=== PATIENT | male | born 1985 | race African-American/Black ===

== ENCOUNTER 2023-11-02 11:20 | Inpatient (IN) | payer MEDICAID, SELFPAY ==
[2023-11-02] VITALS (11 sets, daily range): BP systolic 117–159; BP diastolic 84–95; PULSE 80–116; RESP 16–40; TEMP 36.9–37.2; O2SAT 83–94; BMI 26.3
--- NOTE | 2023-11-02 11:31 | XRR_ITS ---
PROCEDURE INFORMATION: Exam: XR Chest Exam date and time: 11/02/2023 11:43 AM Age: 38 years old Clinical indication: Cough; Patient HX: PT has down syndrome and is unable to give proper history; Additional info: Hypoxia; Chest congestion; Cough. TECHNIQUE: Imaging protocol: Radiologic exam of the chest. Views: 1 view. COMPARISON: No relevant prior studies available. FINDINGS: Lungs: Airspace opacities in mid and lower lungs bilaterally. Pleural spaces: Small pleural effusions. No pneumothorax. Heart/Mediastinum: Cardiomegaly/prominent cardiopericardial silhouette. Bones/joints: Minimal scoliotic curvature and spondylotic changes of the thoracolumbar spine. XR/XR chest 1V portable [id number] IMPRESSION: Airspace opacities in mid and lower lungs. Cardiomegaly. Congestive heart failure and or infection. Correlate clinically and follow-up.
--- NOTE | 2023-11-02 11:32 | W.ED.GENADLT ---
HPI - General Adult General: Chief complaint: General Medical Stated complaint: LOW O2 Time Seen by Provider: 11/02/23 11:26 History of Present Illness: 38-year-old male with a history of Down syndrome who presents from the senior living facility. Their SpO2 was reading slightly low this morning and they wanted a medical screening examination performed. The patient is nonverbal at baseline. EMS gives report that he is prescribed 2 L of oxygen to use by nasal cannula as needed. They report an oral temperature of 98.1. No respiratory distress during transport. SpO2 for them between 90 and 95%. They report the patient does seem to have breath-holding. They report he did have a minor fall yesterday with loose tooth and bruise at bridge of nose. He has been calm and cooperative throughout transport. He is wearing 2 L of oxygen by nasal cannula on arrival. Related Data Allergies Allergy/AdvReac Type Severity Reaction Status Date / Time No Known Allergies Allergy Verified 11/02/23 16:30 Review of Systems General: Reports: ROS unobtainable due to mental status (Down syndrome, nonverbal) Physical Exam Narrative: EXAM NARRATIVE: Patient appears stated age. No distress. Wearing 2 L of oxygen by nasal cannula. Patient has misaligned eyes with strabismus and nystagmus even at his baseline gaze. He has some craniofacial deformities. He has nonverbal. He shakes his head up and down occasionally when you talk to him. He does not appear to be in any distress. I have witnessed him doing breath-holding myself several times during the exam and history from EMS. He does have some nasal congestion/ rhonchi and sounds like he needs to clear his throat. No injuries on trauma exam noted. Const: COMMON NORMALS: alert; negative for patient oriented x3 HENMT: COMMON NORMALS: atraumatic HEAD & SCALP: atraumatic MOUTH: no muffled voice OTHER: nasal congestion, ? bruise at bridge of nose Eye: COMMON NORMALS: conjunctivae normal and no scleral icterus CONJUNCTIVA: Yes conjunctivae normal Neck/C-Spine: GENERAL: Yes normal visual inspection, Yes trachea midline, No tracheostomy present, No Meningeal signs present and Yes other (c spine NT) Resp: COMMON NORMALS: normal respiratory effort and No use of accessory muscles Cardio: COMMON NORMALS: regular rate and regular rhythm RATE: regular rate RHYTHM: regular rhythm GI: COMMON NORMALS: Soft to palpation and non-tender PALPATION: Yes Soft to palpation and No Guarding due to palpation present (GI) Extremity: COMMON NORMALS: normal to inspection Neuro: COMMON NORMALS: moves all extremities and no focal motor deficits; negative for patient oriented x3 SENSORIUM/ORIENTATION: Yes alert Skin: COMMON NORMALS: no rashes or lesions noted, turgor normal and no jaundice GENERAL SKIN EXAM: no rashes or lesions noted and turgor normal Course ED course: 1548 There is been a significant delay in the patient's workup and disposition. He has a lot of anxiety regarding hospitals and anything medical. Staff tried de-escalation and comforting. This did not work so we tried 2 mg of IM Ativan. We still were unable to get CT scans and IV and blood work. I called the patient's sister who is out of town with business right now. She has given me the go ahead to do a sedation so that we can get the testing done. I have ordered a ketamine sedation. Since his chest x-ray is abnormal and it was so difficult to get him the workup he needs, I am going to go ahead and do a CT of his head, face, cervical spine and CTA chest altogether. 1628 Patient has a segmental and subsegmental pulmonary embolism. There is dilatation of the right ventricle compared to the left ventricle. However, the patient's troponin is normal. EKG does not show any signs of strain but he is demonstrating tachycardia after the ketamine. He has T wave inversions in V1 and V2 which are unchanged from EKG 1 to EKG 2. I have paged the hospitalist for admission. Heparin bolus has been ordered. Vital Signs: Vital signs: Vital Signs Temperature 99.0 F 11/02/23 11:25 Pulse Rate 83 11/02/23 11:25 Respiratory Rate 16 11/02/23 11:25 Blood Pressure 117/85 11/02/23 11:25 Pulse Oximetry 88 L 11/02/23 11:25 Oxygen Delivery Me thod Nasal Cannula 11/02/23 11:25 Oxygen Flow Rate 2 11/02/23 11:25 MDM - General Adult Medical Decision Making Patient sent for medical screening. Without knowing the patient well, I will have to rely on history from the care home and EMS. He does not appear distressed, he has normal work of breathing. He does occasionally hold his breath. Unsure if this is contributing. He has some rhonchi which sound like they are being transmitted from his upper airways. + nasal congestion. Sounds like he needs to cough and clear his throat. His lower lungs sound normal on auscultation. Will go ahead and do a chest x-ray and EKG with covid swab. EMS reported a oral temperature of 98.1 and no other signs or symptoms that they or senior living facility were concerned about in regards to infection. He does not have JVD or peripheral edema. His abdomen is soft and nontender. He reportedly fell yesterday and hit the bridge of his nose and his front left central incisor. He has extruded teeth at baseline so his tooth would have been one of the first points of contact. His upper left central incisor is slightly loose. No apparent alveolar fractures. No facial instability. We will go ahead and do a CT scan of his head, face, neck due to the limitations in history and exam given the reported fall yesterday. Lab Data 11/02/23 15:52 11/02/23 15:52 Radiology Impressions Chest X-Ray 11/02/23 11:31 IMPRESSION: Airspace opacities in mid and lower lungs. Cardiomegaly. Congestive heart failure and or infection. Correlate clinically and follow-up. Chest CTA 11/02/23 15:10 IMPRESSION: 1. Pulmonary embolism with thrombus in the site mental and subsegmental pulmonary artery supplying the left lower lobe. 2. There is evidence of right heart strain with an RV to LV ratio measuring 1.2. ADDENDUM: 11/02/23 4421 THIS REPORT CONTAINS FINDINGS THAT MAY BE CRITICAL TO PATIENT CARE. The findings were verbally communicated via telephone conference with EDINSON Barahona at 4:20 PM CDT on 11/02/2023. The findings were acknowledged and understood. Laboratory Results WBC 9.04 10^3/uL (3.29-11.43) 11/02/23 15:52 RBC 5.26 10^6/uL (3.85-5.65) 11/02/23 15:52 Hgb 14.50 g/dL (11.27-16.99) 11/02/23 15:52 Hct 45.8 % (37-53) 11/02/23 15:52 MCV 87.1 fl (82-101) 11/02/23 15:52 MCH 27.6 pg (27-33) 11/02/23 15:52 MCHC 31.7 g/dL (30-55) 11/02/23 15:52 RDW 22.4 % (12.1-15.1) H 11/02/23 15:52 Plt Count 372 10^3/cmm (157-399) 11/02/23 15:52 MPV 8.7 fL (7.4-10.4) 11/02/23 15:52 Neut % (Auto) 59.4 % 11/02/23 15:52 Lymph % (Auto) 27.8 % 11/02/23 15:52 [place] % (Auto) 9.8 % 11/02/23 15:52 Eos % (Auto) 2.0 % 11/02/23 15:52 Baso % (Auto) 0.7 % 11/02/23 15:52 Neut # (Auto) 5.37 10^3/uL (1.8-7.7) 11/02/23 15:52 Lymph # (Auto) 2.5 10^3/uL (0.8-4.8) 11/02/23 15:52 [place] # (Auto) 0.9 10^3/uL (0.2-0.9) 11/02/23 15:52 Eos # (Auto) 0.2 10^3/uL (0.0-0.8) 11/02/23 15:52 Baso # (Auto) 0.1 10^3/uL (0.0-0.1) 11/02/23 15:52 Nucleated RBC % (auto) 0 % 11/02/23 15:52 Nucleated RBCs # 0.0 /100WBC 11/02/23 15:52 PT 14.70 SECONDS (12.1-14.9) 11/02/23 15:52 INR 1.11 (0.8-1.2) 11/02/23 15:52 Sodium 137 mmol/L (136-145) 11/02/23 15:52 Potassium 4.5 mmol/L (3.5-5.1) 11/02/23 15:52 Chloride 99 mmol/L (98-107) 11/02/23 15:52 Carbon Dioxide 29 mmol/L (22-29) 11/02/23 15:52 Anion Gap 13.5 (5-19) 11/02/23 15:52 BUN 14 mg/dL (6-20) 11/02/23 15:52 Creatinine 0.9 mg/dL (0.7-1.2) 11/02/23 15:52 GFR Calculation 113.7 mL/min (90-130) 11/02/23 15:52 Glucose 103 mg/dL (65-115) 11/02/23 15:52 Calculated Osmolality 285 mOsm/kg (285-295) 11/02/23 15:52 Calcium 8.5 mg/dL (8.5-10.5) 11/02/23 15:52 Total Bilirubin 0.3 mg/dL (0.15-1.2) 11/02/23 15:52 AST 18 U/L (0-40) 11/02/23 15:52 ALT 23 U/L (0-41) 11/02/23 15:52 Alkaline Phosphatase 71 U/L (40-130) 11/02/23 15:52 Troponin T Baseline 11 ng/L (0-15) 11/02/23 15:52 NT-Pro-B Natriuret Pep 502 pg/mL (0-125) H 11/02/23 15:52 Globulin 3.2 g/dL (1.3-4.6) 11/02/23 15:52 Procalcitonin 0.06 ng/mL (0-0.5) 11/02/23 15:52 XR interpretation done by ED provider, pending radiology final review Discharge Plan Discharge Patient Disposition: Admitted As Inpatient Clinical Impression: Down syndrome Pulmonary embolism Qualifiers: Pulmonary embolism type: unspecified Chronicity: unspecified Acute cor pulmonale presence: with acute cor pulmonale Qualified Code(s): I26.09 - Other pulmonary embolism with acute cor pulmonale Condition: Stable Coding Level of Care Code ED Hotel Breakfast Attendant for Eileen Bettencourt
--- NOTE | 2023-11-02 11:36 | ECG_ITS ---
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 Measurements Intervals [place] Rate: 74 P: 47 DC: 132 QRS: 38 QRSD: 105 T: 88 QT: 374 QTc: 417 Interpretive Statements SINUS RHYTHM WITH SINUS ARRHYTHMIA INDETERMINATE AXIS No previous ECG available for comparison Electronically Signed On 11-02-2023 20:07:52 CDT by Bryant Walsh M.D. [id number]
--- NOTE | 2023-11-02 11:40 | CTR_ITS ---
PROCEDURE INFORMATION: Exam: CT Maxillofacial Without Contrast Exam date and time: 11/02/2023 3:34 PM Age: 38 years old Clinical indication: Injury or trauma; Fall; Blunt trauma (contusions or hematomas); Orbit/periorbital and maxilla; Bilateral; Additional info: Fall, hit nose/teeth TECHNIQUE: Imaging protocol: Computed tomography of the face without contrast. Radiation optimization: All CT scans at this facility use at least one of these dose optimization techniques: automated exposure control; mA and/or kV adjustment per patient size (includes targeted exams where dose is matched to clinical indication); or iterative reconstruction. COMPARISON: CT head wo con* [id number] 11/02/2023 3:34 PM RADIATION DOSE METRICS: Total DLP (mGy-cm): 549.1 FINDINGS: Orbital cavities: Orbits are normal. Globes are unremarkable. Paranasal sinuses: Normal. No air-fluid levels. Bones: No acute fracture. Soft tissues: Unremarkable. CT/CT facial bones wo con* [id number] IMPRESSION: No acute findings.
--- NOTE | 2023-11-02 11:40 | CTR_ITS ---
PROCEDURE INFORMATION: Exam: CT Head Without Contrast Exam date and time: 11/02/2023 3:34 PM Age: 38 years old Clinical indication: Injury or trauma; Fall; Blunt trauma (contusions or hematomas); Consciousness not specified TECHNIQUE: Imaging protocol: Computed tomography of the head without contrast. Radiation optimization: All CT scans at this facility use at least one of these dose optimization techniques: automated exposure control; mA and/or kV adjustment per patient size (includes targeted exams where dose is matched to clinical indication); or iterative reconstruction. COMPARISON: CT facial bones wo con* [id number] 11/02/2023 3:34 PM RADIATION DOSE METRICS: Total DLP (mGy-cm): 1121.9 FINDINGS: Brain: Normal. No hemorrhage. Unremarkable white matter. No mass effect. Cerebral ventricles: Intact cavum septum pellucidum and et vergae. No ventriculomegaly. Paranasal sinuses: Visualized sinuses are unremarkable. No fluid levels. Mastoid air cells: Visualized mastoid air cells are well aerated. Bones: Unremarkable. No acute fracture. Soft tissues: Unremarkable. CT/CT head wo con* [id number] IMPRESSION: No acute intracranial abnormality.
--- NOTE | 2023-11-02 11:43 | CTR_ITS ---
PROCEDURE INFORMATION: Exam: CT Cervical Spine Without Contrast Exam date and time: 11/02/2023 3:34 PM Age: 38 years old Clinical indication: Injury or trauma; Fall; Blunt trauma; Patient HX: Down syndrome PT, unable to hold still for scan. ; Additional info: Trauma, down syndrome, limited HX TECHNIQUE: Imaging protocol: Computed tomography of the cervical spine without contrast. Radiation optimization: All CT scans at this facility use at least one of these dose optimization techniques: automated exposure control; mA and/or kV adjustment per patient size (includes targeted exams where dose is matched to clinical indication); or iterative reconstruction. COMPARISON: CT facial bones wo con* [id number] 11/02/2023 3:34 PM RADIATION DOSE METRICS: Total DLP (mGy-cm): 591.9 FINDINGS: Bones: No acute fracture. Normal alignment. No significant disc bulge or herniation. No severe spinal canal stenosis. No significant neural foraminal narrowing. Lungs: Lung apices are normal. Soft tissues: Unremarkable. CT/CT cervical spin wo con* [id number] IMPRESSION: No acute findings.
[2023-11-02] MEDS: LORazepam 2 mg/mL INJ 1 mL IM (13:46)
--- NOTE | 2023-11-02 15:10 | CTR_ITS ---
PROCEDURE INFORMATION: Exam: CTA Chest With Contrast Exam date and time: 11/02/2023 3:42 PM Age: 38 years old Clinical indication: Cough and dyspnea; Additional info: Cough, shortness of breath TECHNIQUE: Imaging protocol: Computed tomographic angiography of the chest with contrast. Exam focused on the arteries. 3D rendering (Not supervised by radiologist): MIP and/or 3D reconstructed images were created by the technologist. Radiation optimization: All CT scans at this facility use at least one of these dose optimization techniques: automated exposure control; mA and/or kV adjustment per patient size (includes targeted exams where dose is matched to clinical indication); or iterative reconstruction. Contrast material: OMNIPAQUE 350; Contrast volume: 80 ml; Contrast route: INTRAVENOUS (IV); COMPARISON: CR (CHEST, ) 11/02/2023 11:43 AM RADIATION DOSE METRICS: Total DLP (mGy-cm): 394.91 FINDINGS: Pulmonary arteries: Pulmonary embolism with thrombus in the site mental and subsegmental pulmonary artery supplying the left lower lobe. Aorta: Unremarkable. No aortic aneurysm. No aortic dissection. Lungs: Unremarkable. No consolidation. No masses. Pleural spaces: Unremarkable. No pneumothorax. No pleural effusion. Heart: There is evidence of right heart strain with an RV to LV ratio measuring 1.2. Lymph nodes: Unremarkable. No enlarged lymph nodes. Bones/joints: Unremarkable. No acute fracture. Soft tissues: Unremarkable. CT/CT angio chest PE protcl [id number] IMPRESSION: 1. Pulmonary embolism with thrombus in the site mental and subsegmental pulmonary artery supplying the left lower lobe. 2. There is evidence of right heart strain with an RV to LV ratio measuring 1.2.
--- NOTE | 2023-11-02 15:41 | ECG_ITS ---
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 Measurements Intervals [place] Rate: 103 P: 58 [place]: 141 QRS: 52 QRSD: 97 T: 74 QT: 338 QTc: 443 Interpretive Statements SINUS TACHYCARDIA Compared to ECG 11/02/2023 11:36:40 Sinus rhythm no longer present Sinus arrhythmia no longer present Indeterminate axis no longer present Electronically Signed On 11-02-2023 20:06:39 CDT by Bryant Walsh M.D. [id number]
[2023-11-02] MEDS: iohexol 350 mg/mL 500 mL Btl (per mL) IV (15:54)
[2023-11-02 15:57] LABS: Basophils # 0.1 10^3/uL (0.0-0.1); Basophils % 0.7 %; Eosinophils # 0.2 10^3/uL (0.0-0.8); Hematocrit 45.8 % (37-53); Lymphocytes # 2.5 10^3/uL (0.8-4.8); Lymphocytes % 27.8 %; Mean Corpuscular HGB Conc 31.7 g/dL (30-55); Mean Corpuscular Hemoglobin 27.6 pg (27-33); Mean Corpuscular Volume 87.1 fl (82-101); Mean Platelet Volume 8.7 fL (7.4-10.4); Monocytes # 0.9 10^3/uL (0.2-0.9); Monocytes % 9.8 %; Neutrophils # 5.37 10^3/uL (1.8-7.7); Neutrophils % 59.4 %; Nucleated Red Blood Cells % 0 %; Platelet Count 372 10^3/cmm (157-399); Red Blood Count 5.26 10^6/uL (3.85-5.65); Red Cell Distribution Width 22.4 % (12.1-15.1); White Blood Count 9.04 10^3/uL (3.29-11.43)
[2023-11-02] MEDS: ketamine 100 mg/mL Inj 5 mL 313.9 MG IM (16:07)
[2023-11-02 16:20] LABS: Troponin(5th) Baseline 11 ng/L (0-15)
[2023-11-02 16:25] LABS: NT Pro B Type Natriuretic Pept 502 pg/mL (0-125); Procalcitonin 0.06 ng/mL (0-0.5)
[2023-11-02 16:37] LABS: Alanine Aminotransferase 23 U/L (0-41); Albumin Level 3.3 g/dL (3.5-5.2); Alkaline Phosphatase 71 U/L (40-130); Anion Gap 13.5 (5-19); Aspartate Amino Transferase 18 U/L (0-40); Blood Urea Nitrogen 14 mg/dL (6-20); Calcium 8.5 mg/dL (8.5-10.5); Carbon Dioxide 29 mmol/L (22-29); Chloride 99 mmol/L (98-107); Creatinine Clr Calc Pharmacy 112.8899; Globulin 3.2 g/dL (1.3-4.6); Glomerular Filtration Rate 113.7 mL/min (90-130); Glucose 103 mg/dL (65-115); Osmolality Calculated 285 mOsm/kg (285-295); Potassium 4.5 mmol/L (3.5-5.1); Sodium 137 mmol/L (136-145); Total Bilirubin 0.3 mg/dL (0.15-1.2); Total Protein 6.5 g/dL (6.6-8.7)
[2023-11-02 16:42] LABS: INR 1.11 (0.8-1.2)
[2023-11-02 16:43] LABS: Partial Thromboplastin Time 26.8 SECONDS (23.9-36.7)
--- NOTE | 2023-11-02 16:50 | USR_ITS ---
PROCEDURE INFORMATION: Exam: US Duplex Lower Extremity Veins, Bilateral Exam date and time: 11/02/2023 6:11 PM Age: 38 years old Clinical indication: Swelling (edema) of limb; Lower extremity, bilateral TECHNIQUE: Imaging protocol: Real-time duplex ultrasound of the bilateral extremities with 2-D iglesias scale, color Doppler flow and spectral waveform analysis including responses to compression and other maneuvers (when performed) with image documentation. Complete exam focused on the lower extremity veins. COMPARISON: No relevant prior studies available. FINDINGS: Right deep veins: Unremarkable. The common femoral, femoral, proximal profunda femoral and popliteal veins are patent without thrombus. Normal Doppler waveforms. Normal compressibility and/or augmentation response. Left deep veins: Unremarkable. The common femoral, femoral, proximal profunda femoral and popliteal veins are patent without thrombus. Normal Doppler waveforms. Normal compressibility and/or augmentation response. Superficial veins: Greater saphenous veins at the saphenofemoral junctions are patent bilaterally without thrombus. Soft tissues: Unremarkable. US/CV venous duplex [facility] [id number] IMPRESSION: No evidence of deep vein thrombosis.
[2023-11-02] MEDS: heparin drip 25,000 UNIT/500 ML PREMIX 21.97 UNIT IV (16:55)
--- NOTE | 2023-11-02 16:55 | P.HP_ITS ---
Providers/Chief Complaint 2 Chief Complaint: LOW O2 History of Present Illness Jb Tilley is a 38 year old male with a past medical history of Down syndrome, nonambulatory, does transfer on his own, can feed himself, nonverbal, who presents [facility] due to shortness of breath concerns and hypoxia. Currently patient is nonverbal, he sitting up in bed, O2 sats in the low 80s, as he is removed his oxygen, but he is happy, smiling, he is able to shake my hand, he tells me how I am doing, but beyond that I really do not get any significant history from him. Currently he is a bit tachypneic, crackles and wheezing in all lung cordon, nursing staff reporting him on 2 L as he is removing his oxygen frequently. He does have a lot of nasal drainage and nasal congestion. ? I was able to speak to patient's Sister Joslyn Black who is patient's healthcare power of platform loader, she currently is out of town on a work trip, she tells me that he is nonverbal, can feed himself, no significant issues recently, no significant medical history except his Down syndrome, we clarified his CODE STATUS, she wants him to be a full code, had a detailed discussion with her about his diagnosis of his PE, discussed anticoagulation, risks and benefits, discussed monitoring him in ICU closely further testing, determine the etiology behind his PE, ? I was able to speak to [facility] facility they confirmed patient is nonverbal, he transfers with help, he feeds a regular diet, he did have a fall yesterday evening at 8 PM, the situation around his fall is unclear, but nursing staff did notice this morning, he started bruising around his nasal bridge, he sounded congested, Review of Systems 2 General: Reports: ROS unobtainable due to medical condition Medications/Allergies Allergies Allergy/AdvReac Type Severity Reaction Status Date / Time No Known Allergies Allergy Verified 11/02/23 16:30 PFSH Acute 2 PFSH: Medical History (Updated 11/02/23 @ 17:06 by Marco Valenzuela MD) No pertinent past medical history Surgical History (Updated 11/02/23 @ 17:04 by Marco Valenzuela MD) No pertinent past surgical history Social History (Updated 11/02/23 @ 17:04 by Marco Valenzuela MD) Smoking and tobacco/nicotine status: never used tobacco/nicotine Alcohol intake: never Substance/Drug Use: never Vitals/I&O/Wt Last Vital Signs Temp 99.0 F 11/02/23 11:25 Pulse 83 11/02/23 11:25 Resp 16 11/02/23 11:25 BP 117/85 11/02/23 11:25 Pulse Ox 88 L 11/02/23 11:25 O2 Del Method Nasal Cannula 11/02/23 11:25 O2 Flow Rate 2 11/02/23 11:25 Weight last 48 hrs Weight 78.471 kg Physical Exam 2 Const: COMMON NORMALS: no acute distress ORIENTATION/CONSCIOUSNESS: Yes awake; not oriented to person, not oriented to place and not oriented to time HENMT: COMMON NORMALS: normocephalic HEAD & SCALP: normocephalic OTHER: Bilateral upper lower central incisors, with scant bleeding Eye: COMMON NORMALS: Equal, round and reactive pupils present OTHER: Bilateral scleral erythema Neck/C-Spine: COMMON NORMALS: no JVD OTHER: Bruising over the brow the nose, over bilateral maxillary area, nasal drainage Resp: COMMON NORMALS: normal respiratory effort, No retractions and No use of accessory muscles OTHER: Tachypnea, wheezing and crackles in all lung cordon Cardio: COMMON NORMALS: regular rate, regular rhythm, S1 normal heart sound present and S2 normal heart sound present RATE: regular rate RHYTHM: r egular rhythm HEART SOUNDS: S1 normal heart sound present and S2 normal heart sound present GI: COMMON NORMALS: Normal to inspection, nondistended, normoactive bowel sounds present, Soft to palpation and non-tender Extremity: COMMON NORMALS: no calf tenderness and no pedal edema Data 11/02/23 15:52 11/02/23 15:52 A&P Assessment and plan (1) Acute hypoxic respiratory failure: (2) Pulmonary embolism: Qualifiers: Acute cor pulmonale presence: with acute cor pulmonale Chronicity: u nspecified Pulmonary embolism type: unspecified Qualified Code(s): I26.09 - Other pulmonary embolism with acute cor pulmonale (3) Fall: Plan Acute hypoxic respiratory failure Secondary pulmonary embolism CT/CT angio chest PE protcl [id number] IMPRESSION: 1. Pulmonary embolism with thrombus in the site mental and subsegmental pulmonary artery supplying the left lower lobe. 2. There is evidence of right heart strain with an RV to LV ratio measuring 1.2. Etiology uncertain ? jail reports cases of COVID-19 -As he did have a fall yesterday -Plan ? Monitor in ICU closely -Continue oxygen therapy -ABG if we can obtain it ? CRP ? Venous ultrasound ? Cardiac echo ? Respiratory viral panel ? Telemetry monitoring -serial EKGs, serial troponins, telemetry monitoring ? Heparin drip ? Full code ? Heparin drip for DVT prophylaxis Fall ? CT head no acute findings ? Facial CT no acute findings ? Cervical CT no acute findings Down syndrome -Monitor for agitation, -Ativan, Haldol as needed for agitation Attestations 2 Medical Necessity Statement*: Patient requires hospitalization, inpatient, greater than 2 midnights, for acute hypoxic respiratory failure secondary to pulmonary embolism Diagnoses Acute hypoxic respiratory failure J96.01 Pulmonary embolism I26.09 Acute cor pulmonale presence: with acute cor pulmonale Chronicity: unspecified Pulmonary embolism type: unspecified Fall W19.XXXA
[2023-11-02] MEDS: heparin 5,000 unit/mL INJ 1 mL IVP ×2 (16:59→22:41)
[2023-11-02 17:07] LABS: ABG PCO2 55.5 mmHg (35-45); Arterial Blood Gas Hematocrit 49.4 % (42-52); Base Excess ABG 7.4 mmol/L (-2.0-2.0); Blood Gas Allen Test Pos; Blood Gas Operator Identificat CAK; Blood Gas Sample Site Radial, left; Blood Gas Sample Type Arterial; HCO3 ABG 34.3 mmol/L (22-26); Oxygen Device ROOM AIR; PO2 ABG 47.6 mmHg (80.0-100.0); PO2 FiO2 Ratio Arterial Blood 226
[2023-11-02 17:11] LABS: C Reactive Protein 20.9 mg/L (0.0-4.9)
[2023-11-02 17:14] LABS: Lactic Sepsis W/Reflex 1.2 mmol/L (0.5-2.2)
[2023-11-02 17:22] LABS: SARS Covid-2 Antigen negative (Negative)
[2023-11-02 18:11] LABS: Troponin 5 2HR 10.17 ng/L (0-15)
[2023-11-02 18:13] LABS: Troponin 5 2HR Delta -0.83 ABS# (0-10)
--- NOTE | 2023-11-02 19:57 | ECG_ITS ---
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 Measurements Intervals [place] Rate: 81 P: 49 [place]: 142 QRS: 47 QRSD: 94 T: 75 QT: 369 QTc: 430 Interpretive Statements SINUS RHYTHM WITH SINUS ARRHYTHMIA Compared to ECG 11/02/2023 16:08:09 Sinus tachycardia no longer present Electronically Signed On 11-02-2023 20:09:43 CDT by Bryant Walsh M.D. [id number]
[2023-11-02] MEDS: haloperidol inj 5 mg/mL INJ 1 mL 1 MG IM (21:15)
[2023-11-02] MEDS: pantoprazole 40 mg SDV IVP (21:18)
[2023-11-02] MEDS: LORazepam 2 mg/mL INJ 1 mL 1 MG IVP (21:40)
--- NOTE | 2023-11-02 21:41 | ECG_ITS ---
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 Measurements Intervals [place] Rate: 79 P: 53 TN: 134 QRS: 50 QRSD: 87 T: 76 QT: 386 QTc: 443 Interpretive Statements SINUS RHYTHM MARKED T-WAVE ABNORMALITY, CONSIDER ANTERIOR ISCHEMIA [-0.5+ mV T-WAVE IN V3/V4] Compared to ECG 11/02/2023 19:57:43 T-wave abnormality now present Possible ischemia now present Sinus arrhythmia no longer present Electronically Signed On 11-03-2023 12:09:08 CDT by Bryant Walsh M.D. [id number]
[2023-11-02 22:14] LABS: Partial Thromboplastin Time 35.6 SECONDS (23.9-36.7)
[2023-11-02 22:19] LABS: Estmated Average Glucose 143; Hemoglobin A1C 6.6 % (4.0-6.0)
[2023-11-02 22:22] LABS: Troponin 5 6HR 10.93 ng/L (0-15)
[2023-11-02 22:23] LABS: Troponin 5 6HR Delta -0.07 ng/L (0-12)
[2023-11-02 22:29] LABS: Chol HDL Ratio 4.41 mg/dL (1.0-5.00); Cholesterol 216 mg/dL (0-200); HDL Cholesterol 49 mg/dL (60-100); LDL Cholesterol Calculated 148 mg/dL (50-129); LDL HDL Ratio 3.02 RATIO (0.00-3.22); Thyroid Stimulating Hormone 0.68 uIU/mL (0.27-4.20); Triglycerides 95 mg/dL (0-150)
[2023-11-02 23:25] LABS: Charge for UA Resulting for Rev
[2023-11-02 23:27] LABS: Bilirubin Urine Negative (Negative); Blood Urine Negative (Negative); Glucose Urine UA Negative (Normal); Ketones Urine Negative (Negative); Leukocyte Esterase Urine Negative (Negative); Nitrate Urine Negative (Negative); Protein Urine Negative (Negative); Urine Appearance Clear (CLEAR); Urine Color Yellow (Yellow); pH Urine 6.5 (5-7)
[2023-11-02 23:32] LABS: Bacteria Urine None Seen /hpf; Hyaline Casts Urine 0.81 /lpf; RBC Urine 0-2 /hpf (0-2); Squamous Epithelial Cell Urine 0-5 /hpf (0-5); WBC Urine 0-5 /hpf (0-5)
[2023-11-02 23:55] LABS: Adenovirus Not Detected (NOT DETECT); Chlamydia Pneumoniae Not Detected (NOT DETECT); Coronavirus 229E,HKU1,NL63,OC4 Not Detected (NOT DETECT); Human Metapneumovirus Not Detected (NOT DETECT); Human Rhinovirus/Enterovirus Not Detected (NOT DETECT); Influenza A Not Detected (NOT DETECT); Influenza A H1 Not Detected (NOT DETECT); Influenza A H1-2009 Not Detected (NOT DETECT); Influenza A H3 Not Detected (NOT DETECT); Influenza B Not Detected (NOT DETECT); Mycoplasma Pneumoniae Not Detected (NOT DETECT); Parainfluenza Virus Type 1 Not Detected (NOT DETECT); Parainfluenza Virus Type 2 Not Detected (NOT DETECT); Parainfluenza Virus Type 3 Not Detected (NOT DETECT); Parainfluenza Virus Type 4 Not Detected (NOT DETECT); Respiratory Syncytial Virus A Not Detected (NOT DETECT); Respiratory Syncytial Virus B Not Detected (NOT DETECT); SARS-COV-2 Not Detected (NOT DETECT)
[2023-11-02 23:55] LABS: Specific Gravity, Urine 1.035 (1.005-1.030)
[2023-11-03] VITALS (21 sets, daily range): BP systolic 84–128; BP diastolic 48–71; PULSE 56–106; RESP 11–38; TEMP 35.9–36.9; O2SAT 87–97
[2023-11-03 04:26] LABS: Basophils # 0.1 10^3/uL (0.0-0.1); Basophils % 0.8 %; Eosinophils # 0.1 10^3/uL (0.0-0.8); Eosinophils % 1.6 %; Hematocrit 48.7 % (37-53); Lymphocytes # 1.7 10^3/uL (0.8-4.8); Lymphocytes % 19.1 %; Mean Corpuscular HGB Conc 30.6 g/dL (30-55); Mean Corpuscular Hemoglobin 27.1 pg (27-33); Mean Corpuscular Volume 88.5 fl (82-101); Mean Platelet Volume 8.5 fL (7.4-10.4); Monocytes % 10.7 %; Neutrophils # 6.08 10^3/uL (1.8-7.7); Neutrophils % 67.5 %; Nucleated Red Blood Cells % 0 %; Platelet Count 367 10^3/cmm (157-399); Red Cell Distribution Width 22.6 % (12.1-15.1)
[2023-11-03] MEDS: haloperidol inj 5 mg/mL INJ 1 mL 1 MG IM (04:51)
[2023-11-03 04:54] LABS: Partial Thromboplastin Time 135.1 SECONDS (23.9-36.7)
[2023-11-03 05:00] LABS: Anion Gap 12.4 (5-19); Blood Urea Nitrogen 14 mg/dL (6-20); Calcium 9.1 mg/dL (8.5-10.5); Carbon Dioxide 30 mmol/L (22-29); Chloride 101 mmol/L (98-107); Glomerular Filtration Rate 113.7 mL/min (90-130); Glucose 111 mg/dL (65-115); Osmolality Calculated 289 mOsm/kg (285-295); Potassium 4.4 mmol/L (3.5-5.1); Sodium 139 mmol/L (136-145)
--- NOTE | 2023-11-03 06:00 | USCV_ITS ---
[facility] Age: 38 Gender: M : 1985 Exam Date: 11/03/2023 09:41 Ordering Phys: Marco Valenzuela MD Technologist: [place] [facility] [place]: cp BP: / HR: 71 Rhythm: Sinus Technical Quality: MEASUREMENTS (Male / Female) Normal Values 2D ECHO LV Diastolic Diameter PLAX 4.0 cm 4.2 - 5.9 / 3.9 - 5.3 cm LV Systolic Diameter PLAX 2.9 cm IVS Diastolic Thickness 1.3 cm 0.6 - 1.0 / 0.6 - 0.9 cm IVS Systolic Thickness 1.6 cm LVPW Diastolic Thickness 0.9 cm 0.6 - 1.0 / 0.6 - 0.9 cm LVPW Systolic Thickness 1.2 cm LVOT Diameter 2.1 cm LV Ejection Fraction 2D Teich 55.0 % LV Ejection Fraction MOD 4C 46.5 % LV Ejection Fraction MOD 2C 38.2 % LV Ejection Fraction 2C AL 36.5 % LA Diameter 3.2 cm Aorta at Sinotubular Diameter 2.6 cm DOPPLER AV Peak Velocity 87.0 cm/s LVOT Peak Velocity 59.0 cm/s AV Area Cont Eq vti 3.8 cm squared AV Area Cont Eq pk 2.3 cm squared MV Peak Velocity 59.0 cm/s MV Area PHT 2.5 cm squared Mitral E to A Ratio 1.0 TV Peak Velocity 131.5 cm/s TR Peak Velocity 180.0 cm/s TR Peak Gradient 13.0 mmHg TV Peak E Velocity 67.0 cm/s Right Atrial Pressure 3.0 mmHg Pulmonary Artery Systolic Pressu 16.0 mmHg PV Peak Velocity 63.0 cm/s FINDINGS Left Ventricle Technically difficult study because of poor ultrasonic windows. (Echo contrast - Optison was used to delineate the endocardium and to estimate the LV ejection fraction) Diffuse hypokinesia of the left ventricle. The LV ejection fraction is estimated to be 46% Right Ventricle Right Atrium Left Atrium Mitral Valve Aortic Valve Tricuspid Valve Pulmonic Valve Pericardium Aorta IVC CONCLUSIONS Technically difficult study because of poor ultrasonic windows. (Echo contrast - Optison was used to delineate the endocardium and to estimate the LV ejection fraction) Diffuse hypokinesia of the left ventricle. The LV ejection fraction is estimated to be 46%. No pericardial effusion No similar previous studies are available for comparison Dr Meryl Rosario MD FACC (Electronically Signed) Final Date: 03 November 2023 23:22 S
[2023-11-03] MEDS: LORazepam 2 mg/mL INJ 1 mL 1 MG IVP (06:10)
[2023-11-03] MEDS: dexmedeTOMIDine 0.9 % NaCL 400 MCG/100 ML PREMIX IV ×2 (06:42→17:51)
--- NOTE | 2023-11-03 06:45 | PC.NURSE ---
shift summary, received patient from ER on heparin gtt and 5L oxymask, patient is confused, nonverbal with 1:1 sitter at bedside, patient requires constant redirecting to not pull at lines and keep O2 mask on, O2 sat dropping into the 60's when patient falls asleep, increased oxymask to 10L, asked RT to assess patient, patient was repositioned with rolled towel behind neck which initially brought O2 sat to high 80's but patient still unable to maintain O2 sat, RT recomendations were nasal airway or bipap/cpap, contacted Dr Tejada with concerns for severe obstructive sleep apnea and concern that patient would not tolerate bipap or cpap, ICU staff attempted to place nasal airway resulting in patient becoming combative and pulling airway out, Dr Tejada came to see patient, asked this nurse if he had medications available for agitation, informed that he had haldol and ativan available, after discussion with RT orders given to try bipap and give haldol and ativan as needed to help with agitation, haldol IM given and patient placed on bipap, patient initially tolerating bipap, not actively trying to remove it but still motioning that he wanted it off, but again became agitated when lab attempted to draw blood, trying to remove bipap and pull IV line out, ativan given, patient rested on bipap most of the night but woke up agitated refused to keep it on, patient placed back on oxymask and haldol IM given, attempted to redirect and reorient patient, patient assisted to bedside commode where he attempted to have a BM, patient assisted back to bed and placed on bipap, resting briefly but again woke up combative, swinging and kicking at staff members, requiring security and multiple staff members to keep patient in bed, ativan given, Dr Tejada updated on patient with orders to start Precedex
[2023-11-03] MEDS: perflutren protein-a microsphr 0.22 mg/mL SDV 3 mL IV (10:13)
[2023-11-03 11:53] LABS: Partial Thromboplastin Time 66.1 SECONDS (23.9-36.7)
--- NOTE | 2023-11-03 14:19 | P.PN_ITS ---
Subjective 2 Subjective: Patient was seen this morning, he is currently on BiPAP, does awaken, but easily falls back asleep, had episodes of agitation during the night received Haldol, Ativan, currently on Precedex -Patient was weaned off Precedex, remain s on BiPAP, does awaken but easily falls back asleep -Examined again in the afternoon, off Pr ecedex remains on BiPAP, he does easily awaken, does not follow commands, Vitals/I&O/Wt Last Vital Signs Temp 98.2 F 11/03/23 12:00 Pulse 61 11/03/23 13:55 Resp 15 11/03/23 13:29 BP 91/54 11/03/23 13:29 Pulse Ox 95 11/03/23 13:29 O2 Del Method BiPAP 11/03/23 08:16 O2 Flow Rate 10 11/03/23 06:13 FiO2 35 11/03/23 11:19 11/02/23 11/03/23 11/03/23 22:59 06:59 14:59 Intake Total 127.426 / 127.426 156.667 / 284.093 158.677 / 158.677 Output Total 300 / 300 Balance 127.426 / 127.426 -143.333 / -15.907 158.677 / 158.677 Weight last 48 hrs Weight 83.007 kg Weight 83.461 kg Weight 78.471 kg Physical Exam 2 Const: COMMON NORMALS: no acute distress Resp: COMMON NORMALS: normal respiratory effort, No retractions, No use of accessory muscles and clear to auscultation bilaterally AUSCULTATION: clear to auscultation bilaterally Cardio: COMMON NORMALS: regular rate, regular rhythm, S1 normal heart sound present and S2 normal heart sound present RATE: regular rate RHYTHM: r egular rhythm HEART SOUNDS: S1 normal heart sound present and S2 normal heart sound present GI: COMMON NORMALS: Normal to inspection, nondistended, normoactive bowel sounds present and non-tender Extremity: COMMON NORMALS: no pedal edema Psych: COMMON NORMALS: mental status grossly normal Urinary Catheter Management: Louie: Cath Placed During This Visit: yes Reason for Continuing Indwelling Catheter: Accurate Measurement of Urinary Output in Critically Ill Patients Urinary Catheter Date of Insertion: 11/03/23 Urinary Catheter Time of Insertion: 00:00 Data 11/03/23 04:14 11/03/23 04:14 Micro: Microbiology 11/02/23 21:30 Blood Culture - Preliminary Blood SPECIMEN COLLECTED 11/02/23 21:35 Blood Culture - Preliminary Blood SPECIMEN COLLECTED A&P Assessment and plan (1) Acute hypoxic respiratory failure: (2) Pulmonary embolism: Qualifiers: Acute cor pulmonale presence: with acute cor pulmonale Chronicity: u nspecified Pulmonary embolism type: unspecified Qualified Code(s): I26.09 - Other pulmonary embolism with acute cor pulmonale (3) Fall: Plan Acute hypoxic respiratory failure Secondary pulmonary embolism CT/CT angio chest PE protcl [id number] IMPRESSION: 1. Pulmonary embolism with thrombus in the site mental and subsegmental pulmonary artery supplying the left lower lobe. 2. There is evidence of right heart strain with an RV to LV ratio measuring 1.2. Etiology uncertain ? skilled nursing reports cases of COVID-19 -As he did have a fall yesterday ? Currently on BiPAP -Plan ? Monitor in ICU closely -Continue oxygen therapy ? Venous ultrasound within normal limits ? Cardiac echo ? Respiratory viral panel within normal limits ? Telemetry monitoring -serial EKGs, serial troponins, telemetry monitoring ? Heparin drip ? Full code ? Heparin drip for DVT prophylaxis Acute encephalopathy -likely secondary to sedating medications ? Would avoid sedating medications until absolutely necessary Fall ? CT head no acute findings ? Facial CT no acute findings ? Cervical CT no acute findings Down syndrome -Monitor for agitation, -Has stopped oral sedating medications for agitation, please call MD Attestations 2 Medical Necessity Statement*: Patient requires hospitalization for acute hypoxic respiratory failure secondary to pulmonary embolism Diagnoses Acute hypoxic respiratory failure J96.01 Pulmonary embolism I26.09 Acute cor pulmonale presence: with acute cor pulmonale Chronicity: unspecified Pulmonary embolism type: unspecified Fall W19.XXXA
[2023-11-03] MEDS: heparin drip 25,000 UNIT/500 ML PREMIX 20 UNIT IV (17:04)
--- NOTE | 2023-11-03 17:25 | PC.NURSE ---
Patient taken off bipap 16:30. Patient moved to nasal cannula but refusing to keep it on. oxygen saturation range from 93- 81%. Sr Valenzuela notifed and orders to restart precedex given. Precedex restarted.
[2023-11-03] MEDS: pantoprazole 40 mg SDV IVP (19:29)
[2023-11-03 20:32] LABS: Partial Thromboplastin Time 51.6 SECONDS (23.9-36.7)
[2023-11-03] MEDS: heparin 5,000 unit/mL INJ 1 mL IVP (20:52)
--- NOTE | 2023-11-03 23:07 | PC.NURSE ---
Nursing Face to Face This RN was called to bedside @ 2233 for combative pt. Upon entering room, pt struggling in staff at bedside. Pt refusing bipap mask, low O2 sats and leaking IV in right AC. Manual hold initiated by this RN, Security and 4 additional RN's. Bipap reapplied, O2 returned above 80%, new IV obtained in left FA, soft bilateral wrist restraints applied, precedex infusion switched to new IV. Pt calmed, staff released @ 2245. Sitter and Respiratory at bedside. Physician notified, request update if status changes.
--- NOTE | 2023-11-03 23:08 | PC.NURSE ---
2229 -- O2 saturations decreased to 70s with 15L Oxy mask in place, sleep apnea noted. Attempted to place bipap mask on, becomes combative and pulling off monitors and bipap mask, swinging and kicking at nursing staff. 2232 -- Security and nursing gatehouse attendant called to bedside and manual hold applied per nursing staff and security following safe protocol. Dr. Valdovinos notififed. New IV access obtained to left forearm, precedex infusing. 2244 -- Patient calmer and cooperating, manual hold released and bilat soft wrist restraints applied to prevent patient from pulling off bipap mask, marshall, and IV. Will continue to reassess the need for medical restraints.
--- NOTE | 2023-11-03 23:12 | PC.NURSE ---
Ativan order: Patient had become agitated when nurse placed BiPAP, saturations were in the 70s. Patient was not capable of being redirected. Dr. Mayberry was contacted and gave telephone orders for 0.5mg ativan IM.
[2023-11-04] VITALS (24 sets, daily range): BP systolic 89–158; BP diastolic 38–89; PULSE 58–108; RESP 9–36; TEMP 36.3–37.2; O2SAT 84–98
--- NOTE | 2023-11-04 01:21 | PC.NURSE ---
Patient throughout early shift had remained in bed, was restless at times, pulled at tubes and lines but was mostly redirectable. Became increasingly anxious following lab draw and required increased dose of precedex to manage anxiety. Began to calm and was having longer periods of apnea and hypoxia with oxygen saturation as low as 70%. Attempted to provide 15 liters via mask, and patient became increasingly anxious and aggressive. Provided sensory items in room in attempt to provide distraction and was unsuccessful. Oxygen saturation continued to decline and was sustaining in mid 70's. Attempted to place bipap and patient became violent with staff, hitting, kicking, attempting to remove lines and monitoring equipment, patient remained hypoxic. Staff physically restrained patient using SAFE approved techniques, soft limb restraints applied to neno wrists, precedex titrated up and patient began to calm. Once appropriate sedation achieved blood pressures began to drop with MAP below 70. Precedex turned off for one hour and patient began to awaken and vital signs improved. Patient began pulling at restraints and attempting to remove bipap again. Precedex restarted and patient resting at this time, vital signs stable.
[2023-11-04] MEDS: dexmedeTOMIDine 0.9 % NaCL 400 MCG/100 ML PREMIX 6.23 MCG IV (02:30)
[2023-11-04] MEDS: LORazepam 2 mg/mL INJ 1 mL 0.5 MG IM (02:42)
[2023-11-04 03:02] LABS: Basophils # 0.1 10^3/uL (0.0-0.1); Basophils % 0.5 %; Eosinophils # 0.3 10^3/uL (0.0-0.8); Eosinophils % 2.3 %; Hematocrit 49.8 % (37-53); Lymphocytes # 2.4 10^3/uL (0.8-4.8); Lymphocytes % 19.5 %; Mean Corpuscular HGB Conc 31.3 g/dL (30-55); Mean Corpuscular Hemoglobin 27.6 pg (27-33); Mean Platelet Volume 8.5 fL (7.4-10.4); Monocytes # 1.1 10^3/uL (0.2-0.9); Monocytes % 8.7 %; Neutrophils # 8.32 10^3/uL (1.8-7.7); Neutrophils % 68.7 %; Nucleated Red Blood Cells % 0 %; Platelet Count 382 10^3/cmm (157-399); Red Blood Count 5.66 10^6/uL (3.85-5.65); Red Cell Distribution Width 22.6 % (12.1-15.1); White Blood Count 12.13 10^3/uL (3.29-11.43)
[2023-11-04 03:15] LABS: Partial Thromboplastin Time 69.6 SECONDS (23.9-36.7)
[2023-11-04 03:21] LABS: Anion Gap 13.1 (5-19); Blood Urea Nitrogen 17 mg/dL (6-20); Calcium 8.9 mg/dL (8.5-10.5); Carbon Dioxide 29 mmol/L (22-29); Chloride 100 mmol/L (98-107); Creatinine Clr Calc Pharmacy 94.6783; Glomerular Filtration Rate 90.2 mL/min (90-130); Glucose 102 mg/dL (65-115); Osmolality Calculated 288 mOsm/kg (285-295); Potassium 4.1 mmol/L (3.5-5.1); Sodium 138 mmol/L (136-145)
[2023-11-04] MEDS: EPINEPHrine 2.5 MG in sodium chloride 0.9% 250 ML 6.06 MG IV (04:53)
--- NOTE | 2023-11-04 04:58 | PC.NURSE ---
Patient became increasingly anxious during blood draw, 0.5 mg lorazepam administered IM, continued 0.3 of precedex. Patient became increasingly lethargic, sluggish response to tactile stimuli, no response to auditory stimuli, respirations shallow, remains on bipap, pulse as low as 42, blood pressures with MAP as low as 55. Precedex stopped at 0400, no improvement noted. Contacted Dr. Valdovinos and made aware, new orders received.
[2023-11-04] MEDS: enoxaparin 80 mg/0.8 mL Syringe SUBCUT (09:22)
--- NOTE | 2023-11-04 09:45 | PC.NURSE ---
Addendum entered by Carmelina Merida RN 11/04/23 10:29: Offered BiPa mask to him for resting, pt adamantly refused. Waving his hands around to prevent it being put on. Original Note: Pt pulled off BiPap mask earlier this shift. He was awake, O2 sats 94% on room air. Assisted pt with his breakfast. He hada great appetite. He allowed this nurse to given Lovenox shot, he kept sucking in his stomach and pushing it out and tried to grab it as it was being admin. Did get full dose injected in. Pt now resting with eyes closed, O2 sats down to low 0's upper 70's. Pt allowed nasal cannula to be admin. O2 now at 4lpm/NC. Pt resting comfortable , no s/s of distress noted.
--- NOTE | 2023-11-04 10:27 | PC.NURSE ---
Apneic episodes noted. Pt's O 2sats with be 97% then he started shallow breathing and snoring, his O2 sats withh drop to low 80's. Patting and/or rubbing his back he will start breathing deeper and O2 sats improve.
--- NOTE | 2023-11-04 11:43 | P.PN_ITS ---
Subjective 2 Subjective: Events overnight, patient had episodes of agitation requiring Ativan, then was placed on Precedex, subsequently developed bradycardia required epinephrine drip, currently on minimal epinephrine, being weaned off, currently on BiPAP, was subsequently reexamined later on, he is completely off epinephrine, off BiPAP he will take off his nasal cannula, but with nursing reorientation he puts the nasal cannula back on, still a bit drowsy, normotensive, requiring 2 to 3 L, takes off his oxygen, but can be reoriented by nursing staff to place the oxygen back on him, will transition him off heparin drip to therapeutic Lovenox, and if he can tolerate a regular diet, will see if we can switch him to Eliquis which will make it easier on him, had a detailed discussion with nursing staff, to try to reorient Jb, instead of trying to use physical restraints, or chemical restraints, reorientation reinforcing him seems to help, we will monitor him closely, certainly this is a difficult situation given he has Down syndrome, easily becomes agitated, refuses at times to wear his oxygen, is nonverbal, but we will do our best to try to reorient him and try to keep him safe, try to avoid chemical or physical restraints, and keep staff safe Vitals/I&O/Wt Last Vital Signs Temp 97.9 F 11/04/23 08:00 Pulse 108 H 11/04/23 10:00 Resp 35 H 11/04/23 10:00 BP 94/59 11/04/23 10:00 Pulse Ox 84 L 11/04/23 10:00 O2 Del Method Room Air 11/04/23 10:00 O2 Flow Rate 45 11/04/23 08:00 FiO2 45 11/04/23 08:09 11/03/23 11/04/23 11/04/23 22:59 06:59 14:59 Intake Total 150.271 / 308.948 188.606 / 497.554 557.303 / 557.303 Output Total 650 / 650 Balance 150.271 / 308.948 -461.394 / -152.446 557.303 / 557.303 Weight last 48 hrs Weight 82 kg Weight 83.007 kg Weight 83.461 kg Physical Exam 2 Const: COMMON NORMALS: no acute distress Resp: COMMON NORMALS: normal respiratory effort, No retractions, No use of accessory muscles and clear to auscultation bilaterally AUSCULTATION: clear to auscultation bilaterally Cardio: COMMON NORMALS: regular rate, regular rhythm, S1 normal heart sound present and S2 normal heart sound present RATE: regular rate RHYTHM: r egular rhythm HEART SOUNDS: S1 normal heart sound present and S2 normal heart sound present GI: COMMON NORMALS: Normal to inspection, nondistended, normoactive bowel sounds present and non-tender Extremity: COMMON NORMALS: no pedal edema Urinary Catheter Management: Louie: Cath Placed During This Visit: yes Reason for Continuing Indwelling Catheter: Accurate Measurement of Urinary Output in Critically Ill Patients Urinary Catheter Date of Insertion: 11/03/23 Urinary Catheter Time of Insertion: 00:00 Data 11/04/23 02:53 11/04/23 02:53 Micro: Microbiology 11/02/23 21:30 Blood Culture - Preliminary Blood NEGATIVE TO DATE 11/02/23 21:35 Blood Culture - Preliminary Blood NEGATIVE TO DATE A&P Assessment and plan (1) Acute hypoxic respiratory failure: (2) Pulmonary embolism: Qualifiers: Acute cor pulmonale presence: with acute cor pulmonale Chronicity: u nspecified Pulmonary embolism type: unspecified Qualified Code(s): I26.09 - Other pulmonary embolism with acute cor pulmonale (3) Fall: Plan Acute hypoxic respiratory failure Secondary pulmonary embolism CT/CT angio chest PE protcl [id number] IMPRESSION: 1. Pulmonary embolism with thrombus in the site mental and subsegmental pulmonary artery supplying the left lower lobe. 2. There is evidence of right heart strain with an RV to LV ratio measuring 1.2. Etiology uncertain ? [facility] reports cases of COVID-19 -As he did have a fall yesterday ? Continue nasal cannula, transition off BiPAP Transition off epinephrine drip -Plan -Will try reorientation, to try to have him keep on his oxygen, BiPAP as needed, certainly this will be difficult given his underlying down syndrome, nonverbal, will try to avoid any chemical or physical restraint, as that will increase his anxious behaviors, certainly is a difficult situation, ? Monitor in ICU closely -Continue oxygen therapy ? Venous ultrasound within normal limits ? Cardiac echo, EF 45% ? Respiratory viral panel within normal limits ? Telemetry monitoring -serial EKGs, serial troponins, telemetry monitoring ? Heparin drip, will transition to therapeutic Lovenox then to Eliquis ? Full code ? Eliquis for DVT prophylaxis Acute encephalopathy -likely secondary to sedating medications ? Would avoid sedating medications until absolutely necessary Fall ? CT head no acute findings ? Facial CT no acute findings ? Cervical CT no acute findings Down syndrome -Monitor for agitation, -Has stopped oral sedating medications for agitation, please call MD -Will try reorientation Attestations 2 Medical Necessity Statement*: Patient requires hospitalization for acute hypoxic respiratory failure, pulmonary embolism Diagnoses Acute hypoxic respiratory failure J96.01 Pulmonary embolism I26.09 Acute cor pulmonale presence: with acute cor pulmonale Chronicity: unspecified Pulmonary embolism type: unspecified Fall W19.XXXA
[2023-11-04 21:22] LABS: Glucose Point of Care 135 mg/dL (70-110)
[2023-11-04] MEDS: apixaban 5 mg Tablet 10 MG PO (21:29)
[2023-11-04] MEDS: pantoprazole 40 mg SDV IVP (21:29)
[2023-11-05] VITALS (21 sets, daily range): BP systolic 110–154; BP diastolic 85–95; PULSE 61–89; RESP 0–36; TEMP 36.8–37.1; O2SAT 83–93
[2023-11-05 04:22] LABS: Basophils # 0.1 10^3/uL (0.0-0.1); Basophils % 0.8 %; Eosinophils # 0.4 10^3/uL (0.0-0.8); Eosinophils % 4.2 %; Hematocrit 47.4 % (37-53); Lymphocytes # 2.1 10^3/uL (0.8-4.8); Lymphocytes % 23.3 %; Mean Corpuscular HGB Conc 31.6 g/dL (30-55); Mean Corpuscular Hemoglobin 27.3 pg (27-33); Mean Corpuscular Volume 86.2 fl (82-101); Mean Platelet Volume 8.9 fL (7.4-10.4); Monocytes # 0.8 10^3/uL (0.2-0.9); Monocytes % 8.3 %; Neutrophils # 5.75 10^3/uL (1.8-7.7); Neutrophils % 63.2 %; Nucleated Red Blood Cells % 0 %; Platelet Count 393 10^3/cmm (157-399); Red Cell Distribution Width 21.9 % (12.1-15.1); White Blood Count 9.09 10^3/uL (3.29-11.43)
[2023-11-05 05:01] LABS: Blood Urea Nitrogen 15 mg/dL (6-20); Calcium 8.7 mg/dL (8.5-10.5); Carbon Dioxide 26 mmol/L (22-29); Chloride 99 mmol/L (98-107); Creatinine Clr Calc Pharmacy 115.0901; Glomerular Filtration Rate 113.7 mL/min (90-130); Glucose 100 mg/dL (65-115); Osmolality Calculated 285 mOsm/kg (285-295); Sodium 137 mmol/L (136-145)
[2023-11-05 07:48] LABS: Glucose Point of Care 96 mg/dL (70-110)
[2023-11-05] MEDS: apixaban 5 mg Tablet 10 MG PO (08:20)
--- NOTE | 2023-11-05 09:11 | PC.NURSE ---
Attempted to given pt his Eliquis this am. So far this am he is refusing.
--- NOTE | 2023-11-05 09:43 | PC.NURSE ---
Pt decided he wanted his pudding that had his Eliquis in it and ate it all.
--- NOTE | 2023-11-05 11:30 | PC.NURSE ---
Louie cath: Removed intact after removing fluid from balloon. Pt not very cooperative. Slight bleeding noted.
[2023-11-05 12:16] LABS: Glucose Point of Care 126 mg/dL (70-110)
--- NOTE | 2023-11-05 13:30 | PC.NURSE ---
Pt able to urinate without difficulty.
--- NOTE | 2023-11-05 14:24 | PC.NURSE ---
Report called to [facility] nursing facility. Report given to Caryn Topete LPN. All questions answered.
--- NOTE | 2023-11-05 15:06 | PC.NURSE ---
Joslyn bruner, Pt's sister, notified of pending transfer back to halfway.
--- NOTE | 2023-11-05 15:47 | P.DS_ITS ---
Discharge Providers Date of Admission: 11/02/23 16:34 Date of Discharge: November 05, 2023 Attending Provider at Admission: Marco Valenzuela MD Attending Provider at Discharge: Marco Valenzuela MD Diagnoses at Discharge Discharge Diagnosis (1) Acute hypoxic respiratory failure: Status: Acute (2) Pulmonary embolism: Status: Acute Qualifiers: Acute cor pulmonale presence: with acute cor pulmonale Chronicity: unspecified Pulmonary embolism type: unspecified Qualified Code(s): I26.09 - Other pulmonary embolism with acute cor pulmonale (3) Fall: Status: Acute Reason for Visit Reason for Visit: LOW O2 Hospital Course Hospital Course Jb Tilley is a 38 year old male with a past medical history of Down syndrome, nonambulatory, does transfer on his own, can feed himself, nonverbal, who presents [facility] due to shortness of breath concerns and hypoxia. Currently patient is nonverbal, he sitting up in bed, O2 sats in the low 80s, as he is removed his oxygen, but he is happy, smiling, he is able to shake my hand, he tells me how I am doing, but beyond that I really do not get any significant history from him. Currently he is a bit tachypneic, crackles and wheezing in all lung cordon, nursing staff reporting him on 2 L as he is removing his oxygen frequently. He does have a lot of nasal drainage and nasal congestion. ? I was able to speak to patient's Sister Joslyn Black who is patient's healthcare power of auto body mechanic, she currently is out of town on a work trip, she tells me that he is nonverbal, can feed himself, no significant issues recently, no significant medical history except his Down syndrome, we clarified his CODE STATUS, she wants him to be a full code, had a detailed discussion with her about his diagnosis of his PE, discussed anticoagulation, risks and benefits, discussed monitoring him in ICU closely further testing, determine the etiology behind his PE, ? I was able to speak to shelter facility they confirmed patient is nonverbal, he transfers with help, he feeds a regular diet, he did have a fall yesterday evening at 8 PM, the situation around his fall is unclear, but nursing staff did notice this morning, he started bruising around his nasal bridge, he sounded congested Patient was admitted to [facility] for acute hypoxic respiratory failure secondary to pulmonary embolism, was monitored in the ICU on a heparin drip, cardiac echo showed EF of 45% no significant evidence of right heart strain on echo, respiratory viral panel within normal limits, venous ultrasound within normal limits, did intermittently require BiPAP, overall clinically improved, transition to p.o. Eliquis, will be discharged on p.o. Eliquis, with a follow-up with primary care provider as outpatient. In terms of the etiology behind patient's pulmonary embolism, undetermined, can certainly be referred to hematology oncology for further workup in the near future. In terms of patient's hypoxia related to his pulmonary embolism, given patient's Down syndrome, given his underlying behaviors. it is difficult for patient to follow commands to continue to wear his oxygen. At times he would rip off his oxygen, refused to wear it, his O2 sats would be in the low 80s, but he would remain happy and playful, during my examination no evidence of respiratory distress. At other times once he was more agreeable he would wear his oxygen, this was achieved by keeping him distracted with cartoons on the TV. Certainly this is going to be a difficult situation at the shelter [facility] long- term, will have to monitor closely, would recommend against using chemical or mechanical restraints. On discharge patient was happy, playful, and was agreeable to wear his oxygen, while we had cartoons playing on the TV to keep him occupied. During his hospitalization patient did have respiratory failure requiring BiPAP transition to nasal cannula Echocardiogram showed a EF of 45%, monitor as outpatient monitor for fluid overload Physical Exam Const: COMMON NORMALS: no acute distress Resp: COMMON NORMALS: normal respiratory effort, No retractions, No use of accessory muscles and clear to auscultation bilaterally AUSCULTATION: clear to auscultation bilaterally Cardio: COMMON NORMALS: regular rate, regular rhythm, S1 normal heart sound present and S2 normal heart sound present RATE: regular rate RHYTHM: regular rhythm HEART SOUNDS: S1 normal heart sound present and S2 normal heart sound present GI: COMMON NORMALS: Normal to inspection, nondistended, normoactive bowel sounds present Extremity: COMMON NORMALS: no pedal edema Urinary Catheter Management: Louie: Cath Placed During This Visit: yes, but has since been removed by the nurse Reason for Continuing Indwelling Catheter: Decision to DC Catheter Urinary Catheter Date of Insertion: 11/03/23 Urinary Catheter Time of Insertion: 00:00 Date Urinary Catheter Removed: 11/05/23 Time Urinary Catheter Discontinued: 11:10 Discharge Data Studies Completed and Pending Completed Studies During Hospitalization Category Date Time Status CT angio chest PE protcl [id number] Stat Cat Scan 11/02/23 15:[address] cervical spin wo con* [id number] Stat Cat Scan 11/02/23 11:[address] facial bones wo con* [id number] Stat Cat Scan 11/02/23 11:[address] head wo con* [id number] Stat Cat Scan 11/02/23 11:40 Completed XR chest 1V portable [id number] Stat Exams 11/02/23 11:31 [place] [id number] Stat Ultrasound 11/02/23 16:50 Completed CV. echo wo/w contrast [id number] Stat Ultrasound 11/03/23 06:00 Completed Pending at discharge Category Date Time Status Blood Culture Routine Lab 11/02/23 21:30 Results Radiology Impressions Chest X-Ray 11/02/23 11:31 IMPRESSION: Airspace opacities in mid and lower lungs. Cardiomegaly. Congestive heart failure and or infection. Correlate clinically and follow-up. Face CT 11/02/23 11:40 IMPRESSION: No acute findings. Head CT 11/02/23 11:40 IMPRESSION: No acute intracranial abnormality. Cervical Spine CT 11/02/23 11:43 IMPRESSION: No acute findings. Chest CTA 11/02/23 15:10 IMPRESSION: 1. Pulmonary embolism with thrombus in the site mental and subsegmental pulmonary artery supplying the left lower lobe. 2. There is evidence of right heart strain with an RV to LV ratio measuring 1.2. ADDENDUM: 11/02/23 1621 THIS REPORT CONTAINS FINDINGS THAT MAY BE CRITICAL TO PATIENT CARE. The findings were verbally communicated via telephone conference with EDINSON Barahona at 4:20 PM CDT on 11/02/2023. The findings were acknowledged and understood. Venous Duplex 11/02/23 16:50 IMPRESSION: No evidence of deep vein thrombosis. Laboratory Results WBC 9.09 10^3/uL (3.29-11.43) 11/05/23 03:37 RBC 5.50 10^6/uL (3.85-5.65) 11/05/23 03:37 Hgb 15.00 g/dL (11.27-16.99) 11/05/23 03:37 Hct 47.4 % (37-53) 11/05/23 03:37 MCV 86.2 fl (82-101) 11/05/23 03:37 MCH 27.3 pg (27-33) 11/05/23 03:37 MCHC 31.6 g/dL (30-55) 11/05/23 03:37 RDW 21.9 % (12.1-15.1) H 11/05/23 03:37 Plt Count 393 10^3/cmm (157-399) 11/05/23 03:37 MPV 8.9 fL (7.4-10.4) 11/05/23 03:37 Neut % (Auto) 63.2 % 11/05/23 03:37 Lymph % (Auto) 23.3 % 11/05/23 03:37 Morrill % (Auto) 8.3 % 11/05/23 03:37 Eos % (Auto) 4.2 % 11/05/23 03:37 Baso % (Auto) 0.8 % 11/05/23 03:37 Neut # (Auto) 5.75 10^3/uL (1.8-7.7) 11/05/23 03:37 Lymph # (Auto) 2.1 10^3/uL (0.8-4.8) 11/05/23 03:37 [place]rill # (Auto) 0.8 10^3/uL (0.2-0.9) 11/05/23 03:37 Eos # (Auto) 0.4 10^3/uL (0.0-0.8) 11/05/23 03:37 Baso # (Auto) 0.1 10^3/uL (0.0-0.1) 11/05/23 03:37 Nucleated RBC % (auto) 0 % 11/05/23 03:37 Nucleated RBCs # 0.0 /100WBC 11/05/23 03:37 PT 14.70 SECONDS (12.1-14.9) 11/02/23 15:52 INR 1.11 (0.8-1.2) 11/02/23 15:52 APTT 69.6 SECONDS (23.9-36.7) H 11/04/23 02:53 Specimen Type Arterial 08/18/24 16:56 Sample Site Radial, left 11/02/23 16:56 ABG pH 7.40 (7.35-7.45) 11/02/23 16:56 ABG pCO2 55.5 mmHg (35-45) H 11/02/23 16:56 ABG pO2 47.6 mmHg (80.0-100.0) L 11/02/23 16:56 ABG PO2/FiO2 Ratio 226 11/02/23 16:56 ABG HCO3 34.3 mmol/L (22-26) H 11/02/23 16:56 ABG Base Excess 7.4 mmol/L (-2.0-2.0) H 11/02/23 16:56 Oneil Test Pos 11/02/23 16:56 Hematocrit 49.4 % (42-52) 11/02/23 16:56 O2 Delivery Device Room air 11/02/23 16:56 FiO2 21.0 % 11/02/23 16:56 Hand Lens Polisher ID Cak 11/02/23 16:56 Sodium 137 mmol/L (136-145) 11/05/23 03:37 Potassium 4.0 mmol/L (3.5-5.1) 11/05/23 03:37 Chloride 99 mmol/L (98-107) 11/05/23 03:37 Carbon Dioxide 26 mmol/L (22-29) 11/05/23 03:37 Anion Gap 16.0 (5-19) 11/05/23 03:37 BUN 15 mg/dL (6-20) 11/05/23 03:37 Creatinine 0.9 mg/dL (0.7-1.2) 11/05/23 03:37 GFR Calculation 113.7 mL/min (90-130) 11/05/23 03:37 Glucose 100 mg/dL (65-115) 11/05/23 03:37 POC Glucose 126 mg/dL (70-110) H 11/05/23 12:06 Estimat Average Glucose 143 11/02/23 21:30 Hemoglobin A1c 6.6 % (4.0-6.0) H 11/02/23 21:30 Calculated Osmolality 285 mOsm/kg (285-295) 11/05/23 03:37 Lactic Acid 1.2 mmol/L (0.5-2.2) 11/02/23 15:52 Calcium 8.7 mg/dL (8.5-10.5) 11/05/23 03:37 Total Bilirubin 0.3 mg/dL (0.15-1.2) 11/02/23 15:52 AST 18 U/L (0-40) 11/02/23 15:52 ALT 23 U/L (0-41) 11/02/23 15:52 Alkaline Phosphatase 71 U/L (40-130) 11/02/23 15:52 Troponin T Baseline 11 ng/L (0-15) 11/02/23 15:52 Troponin T 120 Minute 10.17 ng/L (0-15) 11/02/23 17:34 Delta Troponin T -0.83 ABS# (0-10) L 11/02/23 17:34 Troponin T Hi Sens 6Hr 10.93 ng/L (0-15) 11/02/23 21:35 Troponin T Hi Sens 6Hr Delta -0.07 ng/L (0-12) L 11/02/23 21:35 C-Reactive Protein 20.9 mg/L (0.0-4.9) H 11/02/23 15:52 NT-Pro-B Natriuret Pep 502 pg/mL (0-125) H 11/02/23 15:52 Total Protein 6.5 g/dL (6.6-8.7) L 11/02/23 15:52 Albumin 3.3 g/dL (3.5-5.2) L 11/02/23 15:52 Globulin 3.2 g/dL (1.3-4.6) 11/02/23 15:52 Triglycerides 95 mg/dL (0-150) 11/02/23 21:35 Cholesterol 216 mg/dL (0-200) H 11/02/23 21:35 LDL Cholesterol, Calc 148 mg/dL (50-129) H 11/02/23 21:35 HDL Cholesterol 49 mg/dL (60-100) L 11/02/23 21:35 LDL/HDL Ratio 3.02 RATIO (0.00-3.22) 11/02/23 21:35 Cholesterol/HDL Ratio 4.41 mg/dL (1.0-5.00) 11/02/23 21:35 Procalcitonin 0.06 ng/mL (0-0.5) 11/02/23 15:52 TSH 0.68 uIU/mL (0.27-4.20) 11/02/23 21:35 Urine Color Yellow (Yellow) 11/02/23 23:12 Urine Appearance Clear (CLEAR) 11/02/23 23:12 Urine pH 6.5 (5-7) 11/02/23 23:12 Ur Specific [place] 1.035 (1.005-1.030) H 11/02/23 23:12 Urine Protein Negative (Negative) 11/02/23 23:12 Urine Glucose (UA) Negative (Normal) 11/02/23 23:12 Urine Ketones Negative (Negative) 11/02/23 23:12 Urine Blood Negative (Negative) 11/02/23 23:12 Urine Nitrate Negative (Negative) 11/02/23 23:12 Urine Bilirubin Negative (Negative) 11/02/23 23:12 Urine Urobilinogen 1.0 mg/dL (Negative) 11/02/23 23:12 Ur Leukocyte Esterase Negative (Negative) 11/02/23 23:12 Urine RBC 0-2 /hpf (0-2) 11/02/23 23:12 Urine WBC 0-5 /hpf (0-5) 11/02/23 23:12 Ur Squamous Epith Cells 0-5 /hpf (0-5) 11/02/23 23:12 Amorphous Sediment Not Reportable 11/02/23 23:12 Urine Bacteria None seen /hpf (NONE) 11/02/23 23:12 Hyaline Casts 0.81 /lpf 11/02/23 23:12 Adenovirus (PCR) Not detected (NOT DETECT) 11/02/23 20:30 C. pneumoniae DNA (PCR) Not detected (NOT DETECT) 11/02/23 20:30 Coronavirus 229E (PCR) Not detected (NOT DETECT) 11/02/23 20:30 Human Metapneumovir PCR Not detected (NOT DETECT) 11/02/23 20:30 Influenza A (H1) PCR Not detected (NOT DETECT) 11/02/23 20:30 Influ A (H1/09) PCR Not detected (NOT DETECT) 11/02/23 20:30 Influenza A (H3) PCR Not detected (NOT DETECT) 11/02/23 20:30 Influenza Type A (PCR) Not detected (NOT DETECT) 11/02/23 20:30 Influenza Type B (PCR) Not detected (NOT DETECT) 11/02/23 20:30 M. pneumoniae (PCR) Not detected (NOT DETECT) 11/02/23 20:30 Parainfluenza 1 (PCR) Not detected (NOT DETECT) 11/02/23 20:30 Parainfluenza 2 (PCR) Not detected (NOT DETECT) 11/02/23 20:30 Parainfluenza 3 (PCR) Not detected (NOT DETECT) 11/02/23 20:30 Parainfluenza 4 (PCR) Not detected (NOT DETECT) 11/02/23 20:30 RSV Type A (PCR) Not detected (NOT DETECT) 11/02/23 20:30 RSV Type B (PCR) Not detected (NOT DETECT) 11/02/23 20:30 Entero/Rhino (PCR) Not detected (NOT DETECT) 11/02/23 20:30 SARS-CoV-2 (PCR) Not detected (NOT DETECT) 11/02/23 20:30 SARS-CoV-2 Ag (Rapid) negative (Negative) 11/02/23 16:48 Vitals Last Vital Signs Temp 98.4 F 11/05/23 14:45 Pulse 70 11/05/23 12:30 Resp 23 H 11/05/23 11:15 BP 110/89 11/05/23 13:00 Pulse Ox 92 11/05/23 14:45 O2 Del Method Room Air 11/05/23 14:45 O2 Flow Rate 4 11/04/23 19:00 FiO2 45 11/04/23 08:09 Discharge Plan Discharge Patient Disposition: Xfer SNF Condition: Stable Prescriptions: New Eliquis DVT-PE Treat 30D Start 5 mg (74 tabs) tablets,dose pack See Rx Instructions .ROUTE .COMPLEX Qty: 74 0RF Rx Instructions: orally per package directions (DME) glucometer testing kit See Rx Instructions .Route .MEDSUPPLY Qty: 1 0RF Rx Instructions: Glucometer testing kit, lancets #100, strips 100, check BS TID Continued Tylenol 325 mg Tablet 650 mg PO Q6H PRN (Reason: Fever Or Pain) senna 8.6 mg Tablet 8.6 mg PO DAILY PRN (Reason: Constipation) Miralax 17 gram Powder In Packet 17 g PO DAILY PRN (Reason: Constipation) Zyrtec 10 mg Tablet 10 mg PO DAILY PRN (Reason: Allergy Symptoms) [id number] 2-15-325 mg Tablet, Effervescent 2 ea PO Q12H PRN (Reason: Allergy Symptoms) Milk of Magnesia 400 mg/5 mL Suspension 400 mg PO DAILY PRN (Reason: Constipation) bisacodyl 10 mg Suppository 10 mg HI DAILY PRN (Reason: Constipation) Fleet Enema 19-7 gram/118 mL Enema 118 ml HI DAILY PRN (Reason: Constipation) Discharge Orders: Discharge Order (Routine); Ordered 11/05/23 Ordered By: Marco Valenzuela Referrals: [facility] [Outside] Syeda Cancino MD [Physician] - 1 month Bryant Walsh M.D [Physician] - 1 month (chf ) Discharge Diet: Regular and Cardiac Discharge Activity: Resume usual activity Patient Instructions: Opioid Safety Activity Restrictions/Additional Instructions: - Monitor hemoglobin closely, recheck CBC Discharge Attestations Time Spent in Discharge Care*: greater than 30 min Quality Metrics Clinical Quality Measures [ Venous Thromboembolism { Contraindication to Overlap Therapy: None; Overlap threrpy ordered; VTE Discharge Education: Follow-up arranged;}. No reported AMI, CVA or VTE this stay] Coding Level of Care Code 64296 Total time (in minutes) for Discharge: 45 Diagnoses Acute hypoxic respiratory failure J96.01 Pulmonary embolism I26.09 Acute cor pulmonale presence: with acute cor pulmonale Chronicity: unspecified Pulmonary embolism type: unspecified Fall W19.XXXA
--- NOTE | 2023-11-05 15:59 | PC.NURSE ---
report and hand of to KHRIS German. Awaiting transportation for discharge to alf.
--- NOTE | 2023-11-05 16:13 | PC.NURSE ---
this nurse assumed care at this time
== END 2023-11-05 19:30 | disposition skilled nursing facility (03) | DRG 175 ==
LOC: ER 16:34 → ICU 17:04
PROVIDERS: Internal Medicine; Admitting Provider Family Medicine; Emergency Provider Emergency Medicine; Visit Provider Family Medicine
DX: I26.09 Other pulmonary embolism with acute cor pulmonale (principal); J96.01 Acute respiratory failure with hypoxia; G92.8 Other toxic encephalopathy; Q90.9 Down syndrome, unspecified; Z11.52 Encounter for screening for COVID-19; W19.XXXA Unspecified fall, initial encounter; R45.1 Restlessness and agitation; T42.6X5A Adverse effect of other antiepileptic and sedative-hypnotic drugs, initial encounter; R00.1 Bradycardia, unspecified
CPT/HCPCS: 36415; 36416; 36600; 51702; 70450; 70486; 71045; 71275; 72125; 80048; 80053; 80061; 81003; 81015; 82803; 82962; 83036; 83605; 83880; 84145; 84443; 84484; 85025; 85610; 85730; 86140; 87040; 87426; 87486; 87581; 87633; 93005; 93970; 94660; 96372; 96374; 96376; 99285; C8929; J0171; J1630; J1644; J1650; J2060; J2470; J3490; J7050; Q9956; Q9967

== ENCOUNTER 2024-05-29 07:24 | Inpatient (IN) | payer MEDICARE, MEDICAID, SELFPAY ==
[2024-05-29] VITALS (32 sets, daily range): BP systolic 79–142; BP diastolic 40–84; PULSE 92–130; RESP 13–33; TEMP 36.1–36.3; O2SAT 90–100; BMI 32.6
--- NOTE | 2024-05-29 07:27 | CTR_ITS ---
PROCEDURE INFORMATION: Exam: CT Abdomen And Pelvis With Contrast Exam date and time: 05/29/2024 7:46 AM Age: 38 years old Clinical indication: Abdominal pain; Additional info: Abd pain TECHNIQUE: Imaging protocol: Computed tomography of the abdomen and pelvis with contrast. Radiation optimization: All CT scans at this facility use at least one of these dose optimization techniques: automated exposure control; mA and/or kV adjustment per patient size (includes targeted exams where dose is matched to clinical indication); or iterative reconstruction. Contrast material: OMNI 350; Contrast volume: 100 ml; Contrast route: INTRAVENOUS (IV); COMPARISON: CT angio chest PE protcl [id number] 11/02/2023 3:42 PM RADIATION DOSE METRICS: Total DLP (mGy-cm): 1007.67 FINDINGS: Lungs: There is bibasilar atelectasis or infiltrate. On the chest x-ray, patient appear to have bilateral pleural effusions though no pleural effusions are detected on the CT. Diaphragm: There is a small hiatal hernia Liver: Normal. No mass. Gallbladder and biliary ducts: The gallbladder is contracted. No definite gallstones are detected. There is no biliary ductal dilatation Pancreas: No pancreatic mass or ductal dilatation is detected. Spleen: The spleen is unremarkable. Adrenal glands: There are no adrenal lesions. Kidneys and ureters: There are nonobstructing small calculi in each kidney. There is no hydronephrosis. There are no ureteral calculi. There is mild fullness of the left intrarenal collecting system and enhancement of the urothelium here which could represent infection. Neoplasm can not completely be excluded here. There is mild dilatation of the distal aspect of the left ureter.. Small low-density lesions in the left kidney are likely cysts but too small to accurately characterize. Stomach and bowel: The bowel-gas pattern is not obstructed. There are dilated large and small bowel loops as well as the stomach suggesting an adynamic ileus. There is prominent wall thickening and edema involving the entire small bowel. This appears to involve the jejunum to a greater degree than the ileum. Findings suggest severe enteritis. There is no pneumatosis detected.. Appendix: Portions of what may be a normal appendix identified though not definitive Intraperitoneal space: There is a moderate amount of ascites in the abdomen and pelvis. No free air Vasculature: The portal system is not opacified. I would favor that this is due to phase of contrast rather than portal vein thrombosis. Further evaluation of the portal venous system could be obtained with a ultrasound Lymph nodes: There is mesenteric adenopathy. Urinary bladder: There is high density within the bladder which may represent blood products or debris or very concentrated urine. It is possible that what is seen represents a very thickened bladder wall with decompression of the bladder. Reproductive: Unremarkable as visualized. Bones/joints: There are degenerative changes in the spine there are dysplastic hips. The left hip appears disarticulated with a pseudoarticulation in a superior shallow acetabulum. There are degenerative changes in both hips Soft tissues: There is a small umbilical hernia containing fat and fluid but no bowel Other findings: . CT/CT abdomen pelvis w con* [id number] IMPRESSION: 1. Atelectasis and infiltrate both lower lobes. Negative for pleural effusions 2. Moderate amount of ascites in the abdomen and pelvis. No organized fluid collection. 3. Bowel-gas pattern is not obstructed. Dilated loops of small and large bowel as well as the stomach suggest an adynamic ileus 4. Entire small bowel is abnormal with diffuse wall thickening and edema suggesting severe enteritis 5. Portal system is not opacified. This is favored to most likely reflect phase of contrast rather than thrombosis. Further evaluation of the portal system could be obtained with a ultrasound 6. Nonobstructing calculi both kidneys. There is mild fullness of the left intrarenal collecting system. There is enhancement of the left renal urothelium which may indicate infection here. Neoplasm here can not completely be excluded There is also mild dilatation of the distal left ureter. Probable small left renal cysts 7. High density within the bladder which may represent blood products or debris or very concentrated urine. It is possible that what is seen is very thickened bladder wall with a decompressed bladder. 8. Mesenteric adenopathy 9. Deformities both hips as described 10. Small umbilical hernia as described. COMMENTS: Consistent with the [employer]'s Incidental Findings Committee white paper (J Am Kerri Radiol 2018): Any incidental renal lesion less than 1 cm or classified as too small to characterize, or any incidental cystic renal lesion characterized as simple-appearing, is likely benign. No follow-up imaging is recommended for these lesions per consensus recommendations based on imaging criteria.
--- NOTE | 2024-05-29 07:31 | XRR_ITS ---
PROCEDURE INFORMATION: Exam: XR Chest Exam date and time: 05/29/2024 7:39 AM Age: 38 years old Clinical indication: Shortness of breath; Additional info: SOB TECHNIQUE: Imaging protocol: Radiologic exam of the chest. Views: 1 view. COMPARISON: CT angio chest PE protcl [id number] 11/02/2023 3:42 PM FINDINGS: Lungs: There are bilateral basilar lung infiltrates. Pleural spaces: There are small bilateral pleural effusions. Heart/Mediastinum: The heart is mildly enlarged. Bones/joints: There are degenerative changes and scoliosis in the spine XR/XR chest 1V portable [id number] IMPRESSION: 1. Bibasilar lung infiltrates. Small bilateral pleural effusions 2. Mild cardiomegaly
[2024-05-29] MEDS: morphine 4 mg/mL SDV 1 mL IVP (07:43)
[2024-05-29] MEDS: ondansetron 2 mg/ML SDV 2 mL 4 MG IVP (07:43)
[2024-05-29 07:44] LABS: Basophils # 0.1 10^3/uL (0.0-0.1); Basophils % 0.2 %; Hematocrit 55.2 % (37-53); Lymphocytes # 0.7 10^3/uL (0.8-4.8); Lymphocytes % 2.4 %; Mean Corpuscular HGB Conc 30.1 g/dL (30-55); Mean Corpuscular Hemoglobin 23.8 pg (27-33); Mean Corpuscular Volume 79.1 fl (82-101); Mean Platelet Volume 10.4 fL (7.4-10.4); Monocytes # 1.5 10^3/uL (0.2-0.9); Monocytes % 4.9 %; Neutrophils # 27.42 10^3/uL (1.8-7.7); Neutrophils % 91.9 %; Nucleated Red Blood Cells # 0.3 /100WBC; Nucleated Red Blood Cells % 0.9 %; Platelet Count 256 10^3/cmm (157-399); Red Blood Count 6.98 10^6/uL (3.85-5.65); Red Cell Distribution Width 22.3 % (12.1-15.1); White Blood Count 29.84 10^3/uL (3.29-11.43)
--- NOTE | 2024-05-29 07:51 | CTR_ITS ---
PROCEDURE INFORMATION: Exam: CTA Chest With Contrast Exam date and time: 05/29/2024 7:51 AM Age: 38 years old Clinical indication: Shortness of breath; HX of pe; Additional info: SOB TECHNIQUE: Imaging protocol: Computed tomographic angiography of the chest with contrast. Exam focused on the arteries. 3D rendering (Not supervised by radiologist): MIP and/or 3D reconstructed images were created by the technologist. Radiation optimization: All CT scans at this facility use at least one of these dose optimization techniques: automated exposure control; mA and/or kV adjustment per patient size (includes targeted exams where dose is matched to clinical indication); or iterative reconstruction. Contrast material: OMNIPAQUE 350; Contrast volume: 82 ml; Contrast route: INTRAVENOUS (IV); COMPARISON: CT angio chest PE protcl [id number] 11/02/2023 3:42 PM RADIATION DOSE METRICS: Total DLP (mGy-cm): 440.21 FINDINGS: Pulmonary arteries: Ability to evaluate for pulmonary emboli particularly branch vessel pulmonary emboli is limited by motion and streak artifact. No pulmonary embolus is detected in the main pulmonary trunk or the main right or left pulmonary artery. No definite branch vessel pulmonary embolus is detected however again ability to evaluate is markedly limited by artifact. . There is an area of somewhat linear filling defects seen in an upper lobe branch vessel on series 7 images 128 through 130 is suspicious for possible recanalized subacute pulmonary embolus but is in an area of significant artifact in the may account for the findings here. There is another possible suspicious area in a right lower lobe branch vessel but again this may all be due to artifact. There is prominence of the main pulmonary trunk and main right or left pulmonary arteries suggesting pulmonary arterial hypertension. RV LV ratio is mildly elevated at 1.1 Aorta: There is no aortic aneurysm or dissection. Lungs: There are infiltrates and/or atelectasis in both lower lobes and there is atelectasis in the right middle lobe Pleural spaces: There is bilateral apical pleural thickening as before. Heart: Unremarkable. No cardiomegaly. No pericardial effusion. Lymph nodes: There is no mediastinal or hilar adenopathy.. There is fluid in the esophagus which may indicate gastroesophageal reflux. Intraperitoneal space: There is ascites in upper abdomen. See separate report for CT abdomen and pelvis Bones/joints: There are degenerative changes and scoliosis in the spine. Soft tissues: There is bilateral gynecomastia. CT/CT angio chest PE protcl [id number] IMPRESSION: 1. This study is significantly degraded by motion and streak artifact. This limits ability to evaluate for pulmonary embolus' 2. Linear filling defects seen in a left upper lobe branch vessel is suspicious for possible subacute pulmonary embolus here however this may all be artifact . There is also another suspicious area for possible branch vessel pulmonary embolus in the right lower lobe inferiorly which could be acute or subacute branch vessel pulmonary embolus but again this appearance may be due to artifact. Recommend repeating this study when patient able. There is no central pulmonary embolus detected. 3. Bibasilar atelectasis/infiltrate. 4. Fluid in the esophagus which may indicate gastroesophageal reflux Preliminary report was discussed with Dr. Young on 05/29/2024 at 9:05 a.m. central time.
[2024-05-29] MEDS: sodium chloride 0.9% 1,000 ML 999 ML IV ×3 (08:00→09:48)
[2024-05-29] MEDS: VANCOMYCIN ADD-Vantage 1,000 MG in 0.9% NaCl ADD-Vantage 250 ML 250 MG IV (08:00)
[2024-05-29] MEDS: LORazepam 2 mg/mL INJ 1 mL 1 MG IVP (08:00)
[2024-05-29] MEDS: iohexol 350 mg/mL 500 mL Btl (per mL) IV (08:02)
--- NOTE | 2024-05-29 08:10 | ECG_ITS ---
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: : 1985 Requested By: Veronique Young Order Number: [id number] Stuart MD: MAMADOU MONTILLA Measurements Intervals [place] Rate: 120 P: 66 AL: 100 QRS: 89 QRSD: 112 T: 61 QT: 305 QTc: 431 Interpretive Statements SINUS TACHYCARDIA WITH SHORT AL INTERVAL MODERATE INTRAVENTRICULAR CONDUCTION DELAY [110+ ms QRS DURATION] MODERATE ST DEPRESSION [0.05+ mV ST DEPRESSION] Compared to ECG 11/02/2023 23:02:33 Short AL interval now present Intraventricular conduction delay now present ST (T wave) deviation now present Sinus rhythm no longer present T-wave abnormality no longer present Possible ischemia no longer present Electronically Signed On 05-31-2024 18:11:34 CDT by MAMADOU MONTILLA [email or web address] [id number]
--- NOTE | 2024-05-29 08:11 | ED_ITS ---
HPI - GI Bleed 2 General: Chief complaint: GI Bleed Stated complaint: vomiting blood Time Seen by Provider: 05/29/24 07:25 Source: EMS Mode of arrival: EMS Limitations: altered mental status History of Present Illness: 38-year-old male has a history of Down s yndrome he is here from long term patient is nonverbal per EMS patient's been having increased abdominal distention he has not been having bowel movements and started having vomiting this morning concern of possible coffee-ground emesis not seen he evidence of that here. Patient does have a distended abdomen he is nonverbal and history is not available from him Related Data Home Medications ?Medication ?Instructions ?Recorded ?Confirmed acetaminophen 325 mg tablet 650 mg PO Q6H PRN Fever Or Pain 11/02/23 05/29/24 (Tylenol) bisacodyl 10 mg rectal suppository 10 mg [place] DAILY PRN Constipation 11/02/23 05/29/24 cetirizine 10 mg tablet (Zyrtec) 10 mg PO DAILY PRN Al lergy Symptoms 11/02/23 05/29/24 magnesium hydroxide 400 mg/5 mL 400 mg PO DAILY PRN Co nstipation 11/02/23 05/29/24 oral suspension (Milk of Magnesia) polyethylene glycol 3350 17 gram 17 g PO DAILY PRN Con stipation 11/02/23 05/29/24 oral powder packet (Miralax) sennosides 8.6 mg tablet (senna) 8.6 mg PO DAILY PRN C onstipation 11/02/23 05/29/24 sodium phosphates 19 gram-7 118 ml [place] DAILY PRN Consti pation 11/02/23 05/29/24 gram/118 mL enema (Fleet Enema) bismuth subsalicylate 262 mg/15 mL 524 mg PO QID 05/2905/29/24 oral suspension (Pepto-Bismol) dvlbatqscwbivwbj-oivsluyex-prhqlyc 2 ea PO Q12H PRN Al lergy Symptoms 05/29/24 05/29/24 2 mg-7.8 mg-325 mg efferves. tablet (Mckayla-[place] Plus Cold (PE)) ondansetron HCl 4 mg tablet 4 mg PO Q6H PRN Nausea And Vomiting 03/15/25 03/15/25 Previous Rx's ?Medication ?Instructions ?Recorded glucometer testing kit #1 ea 11/05/23 Allergies Allergy/AdvReac Type Severity Reaction Status Date / Time No Known Allergies Allergy Verified 11/02/23 16:30 Review of Systems 2 General: Reports: ROS unobtainable due to mental status PFSH ED 2 PFSH: Medical History No pertinent past medical history Surgical History No pertinent past surgical history Social History Smoking and tobacco/nicotine status: never used tobacco/nicotine Alcohol intake: never Substance/Drug Use: never Physical Exam 2 Const: COMMON NORMALS: negative for patient oriented x3 GENERAL APPEARANCE: ill appearing HENMT: COMMON NORMALS: normocephalic and atraumatic HEAD & SCALP: n ormocephalic and atraumatic Eye: COMMON NORMALS: conjunctivae normal CONJUNCTIVA: Yes conjunctivae normal Neck/C-Spine: COMMON NORMALS: full ROM and supple Chest: COMMONS NORMALS: normal inspection of the chest Resp: COMMON NORMALS: No retractions and No use of accessory muscles A USCULTATION: rales Cardio: COMMON NORMALS: No murmurs present (Cardio) RATE: tachycardic GI: OTHER: Diffuse distention to his abdomen bowel sounds are absent Extremity: COMMON NORMALS: normal to inspection and full ROM Neuro: COMMON NORMALS: moves all extremities and no focal motor deficits; negative for patient oriented x3 Psych: COMMON NORMALS: cooperative; negative for mental status grossly normal Skin: COMMON NORMALS: no rashes or lesions noted and no wounds GENERAL SKIN EXAM: no rashes or lesions noted Procedures Central Line Placement Right IJ: Time Out Performed: Yes Patient Placed on Monitor/Pulse Ox: Yes Prep: mask, gown and gloves Central Line Prep: Povidone-Iodine 1% Ultrasound Used for Placement: Yes Central Line Lumen Inserted: triple Post Procedure: sutured in place, good blood return, all ports aspirated, flushed, capped and sterile dressing applied Post Procedure X-Ray: tip of catheter in good position Patient Tolerated Procedure: well Complications: none Intubation Time out performed: Yes Laryngoscope: Siddharth ET Tube Size: 8 ET Tube Uncuffed: No Tube Secured Depth (cm): 25 Tube Secured Location: teeth Tube Placement Confirmation: visualized tube passing through cords, equal breath sounds bilaterally, no breath sounds over epigastrium and confirmation by capnometry Patient Tolerated Procedure: well Intubation Complications: none Course 2 Reevaluation(s): Reevaluation #1: Patient aspirated and then coded CPR was immediately started he did receive ROSC after 3 rounds of epi patient was intubated he had a large amount of vomitus central line was placed he is currently on an epi drip with stable vitals Time: :15 Vital Signs: Vital signs: Vital Signs Temperature 97.3 F L 05/29/24 07:24 Pulse Rate 103 H 05/29/24 09:51 Respiratory Rate 16 05/29/24 09:51 Blood Pressure 103/46 05/29/24 08:11 Pulse Oximetry 94 05/29/24 09:51 Oxygen Delivery Me thod Mechanical Ventil ation 05/29/24 09:51 Fraction of Inspir ed Oxygen 50 05/29/24 09:51 MDM - GI Bleed Medical Decision Making Patient presents here with pneumonia likely aspirated had a cardiac arrest patient was intubated central line placed he is on epi drip patient given sepsis IV fluid bolus along with antibiotics vitals are currently stable spoke to hospitalist will admit to ICU Medical Records I reviewed the patient's medical records. Lab Data I reviewed the patient's lab results. 05/29/24 09:54 05/29/24 07:36 Radiology Impressions Abdomen/Pelvis CT 05/29/24 07:27 IMPRESSION: 1. Atelectasis and infiltrate both lower lobes. Negative for pleural effusions 2. Moderate amount of ascites in the abdomen and pelvis. No organized fluid collection. 3. Bowel-gas pattern is not obstructed. Dilated loops of small and large bowel as well as the stomach suggest an adynamic ileus 4. Entire small bowel is abnormal with diffuse wall thickening and edema suggesting severe enteritis 5. Portal system is not opacified. This is favored to most likely reflect phase of contrast rather than thrombosis. Further evaluation of the portal system could be obtained with a ultrasound 6. Nonobstructing calculi both kidneys. There is mild fullness of the left intrarenal collecting system. There is enhancement of the left renal urothelium which may indicate infection here. Neoplasm here can not completely be excluded There is also mild dilatation of the distal left ureter. Probable small left renal cysts 7. High density within the bladder which may represent blood products or debris or very concentrated urine. It is possible that what is seen is very thickened bladder wall with a decompressed bladder. 8. Mesenteric adenopathy 9. Deformities both hips as described 10. Small umbilical hernia as described. COMMENTS: Consistent with the [employer]'s Incidental Findings Committee white paper (J Am Kerri Radiol 2018): Any incidental renal lesion less than 1 cm or classified as too small to characterize, or any incidental cystic renal lesion characterized as simple-appearing, is likely benign. No follow-up imaging is recommended for these lesions per consensus recommendations based on imaging criteria. Chest CTA 05/29/24 07:51 IMPRESSION: 1. This study is significantly degraded by motion and streak artifact. This limits ability to evaluate for pulmonary embolus' 2. Linear filling defects seen in a left upper lobe branch vessel is suspicious for possible subacute pulmonary embolus here however this may all be artifact . There is also another suspicious area for possible branch vessel pulmonary embolus in the right lower lobe inferiorly which could be acute or subacute branch vessel pulmonary embolus but again this appearance may be due to artifact. Recommend repeating this study when patient able. There is no central pulmonary embolus detected. 3. Bibasilar atelectasis/infiltrate. 4. Fluid in the esophagus which may indicate gastroesophageal reflux Preliminary report was discussed with Dr. Young on 05/29/2024 at 9:05 a.m. central time. Chest X-Ray 05/29/24 09:16 IMPRESSION: 1. Lines and tubes as described 2. Bibasilar lung infiltrates/atelectasis with a new infiltrate left upper lung zone. 3. Negative for pneumothorax. Negative for pleural effusion Laboratory Results WBC 32.36 10^3/uL (3.29-11.43) H* 05/29/24 09:54 RBC 5.60 10^6/uL (3.85-5.65) 05/29/24 09:54 Hgb 13.60 g/dL (11.27-16.99) 05/29/24 09:54 Hct 44.9 % (37-53) 05/29/24 09:54 MCV 80.2 fl (82-101) L 05/29/24 09:54 MCH 24.3 pg (27-33) L 05/29/24 09:54 MCHC 30.3 g/dL (30-55) 05/29/24 09:54 RDW 21.6 % (12.1-15.1) H 05/29/24 09:54 Plt Count 231 10^3/cmm (157-399) 05/29/24 09:54 MPV 10.5 fL (7.4-10.4) H 05/29/24 09:54 Neut % (Auto) 90.8 % 05/29/24 09:54 Lymph % (Auto) 2.7 % 05/29/24 09:54 [place] % (Auto) 3.7 % 05/29/24 09:54 Eos % (Auto) 0.0 % 05/29/24 09:54 Baso % (Auto) 0.2 % 05/29/24 09:54 Neut # (Auto) 29.39 10^3/uL (1.8-7.7) H 05/29/24 09:54 Lymph # (Auto) 0.9 10^3/uL (0.8-4.8) 05/29/24 09:54 [place] # (Auto) 1.2 10^3/uL (0.2-0.9) H 05/29/24 09:54 Eos # (Auto) 0.0 10^3/uL (0.0-0.8) 05/29/24 09:54 Baso # (Auto) 0.1 10^3/uL (0.0-0.1) 05/29/24 09:54 Nucleated RBC % (auto) 0.8 % 05/29/24 09:54 Nucleated RBCs # 0.3 /100WBC 05/29/24 09:54 PT 19.80 SECONDS (12.1-14.9) H 05/29/24 09:54 INR 1.57 (0.8-1.2) H 05/29/24 09:54 APTT 28.7 SECONDS (23.9-36.7) 05/29/24 09:54 Specimen Type Arterial 05/29/24 09:15 Sample Site Radial, left 05/29/24 09:15 ABG pH 7.14 (7.35-7.45) L* 05/29/24 09:15 ABG pCO2 55.9 mmHg (35-45) H 05/29/24 09:15 ABG pO2 451.0 mmHg (80.0-100.0) H 05/29/24 09:15 ABG PO2/FiO2 Ratio 451 05/29/24 09:15 ABG HCO3 18.9 mmol/L (22-26) L 05/29/24 09:15 ABG O2 Saturation > 99.1 05/29/24 09:15 ABG Base Excess -10.5 mmol/L (-2.0-2.0) L 05/29/24 09:15 Oneil Test Pos 05/29/24 09:15 A-a O2 Gradient Not Reportable 05/29/24 09:15 Hematocrit 41.7 % (42-52) L 05/29/24 09:15 Hgb O2 Saturation 97.3 % (95-100) 05/29/24 09:15 Carboxyhemoglobin 1.7 %THgb (0.4-20.1) 05/29/24 09:15 Methemoglobin 1.0 % (0.4-1.5) 05/29/24 09:15 Total Hemoglobin 13.6 g/dL (14-18) L 05/29/24 09:15 Sodium 138.0 mmol/L (131-143) 05/29/24 09:15 Potassium 3.9 mmol/L (3.5-5.0) 05/29/24 09:15 Glucose 172.0 mg/dL (70-115) H 05/29/24 09:15 Ionized Calcium 1.1 mmol/L (1.1-1.4) 05/29/24 09:15 O2 Delivery Device Vent 05/29/24 09:15 FiO2 100.0 % 05/29/24 09:15 Tidal Volume .48 05/29/24 09:15 Outreach Coordinator ID [place] 05/29/24 09:15 Sodium 138 mmol/L (136-145) 05/29/24 07:36 Potassium 4.9 mmol/L (3.5-5.1) 05/29/24 07:36 Chloride 90 mmol/L (98-107) L 05/29/24 07:36 Carbon Dioxide 28 mmol/L (22-29) 05/29/24 07:36 Anion Gap 24.9 (5-19) H 05/29/24 07:36 BUN 44 mg/dL (6-20) H 05/29/24 07:36 Creatinine 3.2 mg/dL (0.7-1.2) H 05/29/24 07:36 GFR Calculation 26.3 mL/min (90-130) L 05/29/24 07:36 Glucose 166 mg/dL (65-115) H 05/29/24 07:36 Estimat Average Glucose 163 05/29/24 07:36 Hemoglobin A1c 7.3 % (4.0-6.0) H 05/29/24 07:36 Calculated Osmolality 301 mOsm/kg (285-295) H 05/29/24 07:36 Lactic Acid 5.3 mmol/L (0.5-2.2) H* 05/29/24 07:36 Calcium 9.9 mg/dL (8.5-10.5) 05/29/24 07:36 Total Bilirubin 4.1 mg/dL (0.15-1.2) H 05/29/24 07:36 Total Bilirubin 4.3 mg/dL (0.15-1.2) H 05/29/24 07:36 Direct Bilirubin 3.30 mg/dL (0.00-0.30) H 05/29/24 07:36 Indirect Bilirubin 1.00 05/29/24 07:36 AST 273 U/L (0-40) H 05/29/24 07:36 ALT 146 U/L (0-41) H 05/29/24 07:36 Alkaline Phosphatase 222 U/L (40-130) H 05/29/24 07:36 Troponin T Baseline 33 ng/L (0-15) H 05/29/24 08:29 NT-Pro-B Natriuret Pep 704 pg/mL (0-125) H 05/29/24 07:36 Total Protein 7.8 g/dL (6.6-8.7) 05/29/24 07:36 Albumin 2.7 g/dL (3.5-5.2) L 05/29/24 07:36 Globulin 5.1 g/dL (1.3-4.6) H 05/29/24 07:36 Lipase 10 U/L (13-60) L 05/29/24 07:36 Procalcitonin 3.47 ng/mL (0-0.5) H 05/29/24 08:29 TSH 0.32 uIU/mL (0.27-4.20) 05/29/24 08:29 All radiology interpretation(s) finalized by discharge Critical Care Time 2 Critical Care Time: Critical Care Time: Yes Total Critical Care Time: 60 Attestation: The high probability of a clinically significant, sudden or life threatening deterioration of the patient's resp system(s) required my full and direct attention, intervention and personal management. The critical care time is as shown. This time is in addition to time spent performing any reported procedures but includes the following: [x] Data and vital sign review and interpretation [x] Patient assessment, examination and intervention [x] Documentation [x] Medication orders and management Discharge Plan Discharge Patient Disposition: Admitted As Inpatient Admit Provider: Marco Valenzuela Clinical Impression: Pneumonia, Vomiting, Ileus, Cardiac arrest Condition: Stable Coding Level of Care Code ED Film Crew Member for Eileen Bettencourt
[2024-05-29 08:13] LABS: Alanine Aminotransferase 146 U/L (0-41); Albumin Level 2.7 g/dL (3.5-5.2); Alkaline Phosphatase 222 U/L (40-130); Aspartate Amino Transferase 273 U/L (0-40); Blood Urea Nitrogen 44 mg/dL (6-20); Calcium 9.9 mg/dL (8.5-10.5); Carbon Dioxide 28 mmol/L (22-29); Chloride 90 mmol/L (98-107); Creatinine Clr Calc Pharmacy 35.0908; Globulin 5.1 g/dL (1.3-4.6); Glomerular Filtration Rate 26.3 mL/min (90-130); Glucose 166 mg/dL (65-115); Lipase 10 U/L (13-60); Osmolality Calculated 301 mOsm/kg (285-295); Sodium 138 mmol/L (136-145); Total Bilirubin 4.1 mg/dL (0.15-1.2); Total Protein 7.8 g/dL (6.6-8.7)
[2024-05-29 08:15] LABS: Anion Gap 24.9 (5-19); Potassium 4.9 mmol/L (3.5-5.1)
[2024-05-29 08:22] LABS: NT Pro B Type Natriuretic Pept 704 pg/mL (0-125)
[2024-05-29] MEDS: piperacillin-tazobactam 3.375 GM in sodium chloride 0.9% (plus) 50 ML IV (08:28)
[2024-05-29 08:36] LABS: Lactic Sepsis W/Reflex 5.3 mmol/L (0.5-2.2)
[2024-05-29 08:38] LABS: Reflex Lactate Order REFLEX LACTIC ORDERD
--- NOTE | 2024-05-29 09:16 | XRR_ITS ---
PROCEDURE INFORMATION: Exam: XR Chest Exam date and time: 05/29/2024 9:16 AM Age: 38 years old Clinical indication: Device placement; Ett placement (vent status); Additional info: Post intubation TECHNIQUE: Imaging protocol: Radiologic exam of the chest. Views: 1 view. COMPARISON: CT angio chest PE protcl [id number] 05/29/2024 7:51 AM FINDINGS: Tubes, catheters and devices: Since the prior study, an ETT has been placed. The tip is proximally 1.8 cm above the pinky. There is a new right jugular central venous catheter with its tip projecting in the region of the superior vena cava. . There is an NG tube in the stomach with its tip not included on this study. Lungs: There is bibasilar atelectasis/infiltrate. There is a new infiltrate in the left upper lung zone Pleural spaces: There is no pneumothorax detected. No pleural effusion is detected. Heart/Mediastinum: Unremarkable. No cardiomegaly. Bones/joints: There are degenerative changes and scoliosis in the spine XR/XR chest 1V portable [id number] IMPRESSION: 1. Lines and tubes as described 2. Bibasilar lung infiltrates/atelectasis with a new infiltrate left upper lung zone. 3. Negative for pneumothorax. Negative for pleural effusion
[2024-05-29 09:27] LABS: ABG PCO2 55.9 mmHg (35-45); Arterial Blood Gas Hematocrit 41.7 % (42-52); Base Excess ABG -10.5 mmol/L (-2.0-2.0); Blood Gas Allen Test Pos; Blood Gas Operator Identificat WALCI; Blood Gas Sample Site Radial, left; Blood Gas Sample Type Arterial; Carboxyhemoglobin 1.7 %THgb (0.4-20.1); HCO3 ABG 18.9 mmol/L (22-26); HGB O2 Sat 97.3 % (95-100); Ionized Calcium Level - ABG 1.1 mmol/L (1.1-1.4); Oxygen Saturation ABG > 99.1; Potassium Level - ABG 3.9 mmol/L (3.5-5.0); Total Hemoglobin 13.6 g/dL (14-18)
[2024-05-29] MEDS: EPINEPHrine 2.5 MG in sodium chloride 0.9% 250 ML 59.1 MG IV (09:30)
[2024-05-29] MEDS: propofol 1,000 MG/100 ML INJ 11.7 MG IV (09:30)
[2024-05-29 09:33] LABS: Troponin(5th) Baseline 33 ng/L (0-15)
--- NOTE | 2024-05-29 09:45 | P.CONIM_ITS ---
Providers/Reason For Consult 2 Consulting Physician/Specialty*: General Surgery Reason for Consult*: Adynamic ileus History of Present Illness History of Present Illness Jb Tilley is a 38 year old male Who is nonverbal, has mental disability and is brought in today with nausea vomit and altered mental status. According to the caregiver patient has been constipated for some days and today he started vomiting what they thought might be coffee-ground emesis. His abdomen was distended but not complaining of pain. On arrival to the emergency department he had CT of the chest abdomen and pelvis. Shows possible pneumonia and on the GI tract there is a adynamic ileus with enhancement of the cuff completed small bowel and thickening of the wall of the complete small bowel concerning for a severe enteritis. There is no evidence of pneumatosis free air or any other changes suggesting of bowel ischemia. While in the emergency room patient coded And is now status post cardiac arrest with return of spontaneous circulation. He is intubated sedated NG tube is in place. Review of Systems 2 General: Reports: ROS unobtainable due to endotracheal tube, ROS unobtainable due to medical condition and ROS unobtainable due to mental status Medications/Allergies Home Medications ?Medication ?Instructions ?Recorded ?Confirmed ?Last Taken ?Type acetaminophen 325 mg tablet 650 mg PO Q6H PRN Fever Or Pain 11/02/23 05/29/24 05/27/24 History (Tylenol) bisacodyl 10 mg rectal suppository 10 mg [place] DAILY PRN Constipation 11/02/23 05/29/24 05/28/24 History cetirizine 10 mg tablet (Zyrtec) 10 mg PO DAILY PRN Al lergy Symptoms 11/02/23 05/29/24 Unknown History magnesium hydroxide 400 mg/5 mL 400 mg PO DAILY PRN Co nstipation 11/02/23 05/29/24 05/28/24 History oral suspension (Milk of Magnesia) polyethylene glycol 3350 17 gram 17 g PO DAILY PRN Con stipation 11/02/23 05/29/24 05/28/24 History oral powder packet (Miralax) sennosides 8.6 mg tablet (senna) 8.6 mg PO DAILY PRN C onstipation 11/02/23 05/29/24 Unknown History sodium phosphates 19 gram-7 118 ml [place] DAILY PRN Consti pation 11/02/23 05/29/24 05/28/24 History gram/118 mL enema (Fleet Enema) glucometer testing kit #1 ea 11/05/23 05/29/24 Unkn own Rx bismuth subsalicylate 262 mg/15 mL 524 mg PO QID 05/2905/29/24 Unknown History oral suspension (Pepto-Bismol) tydduuecywutuywe-mhbpluerc-swixbhd 2 ea PO Q12H PRN Al lergy Symptoms 05/29/24 05/29/24 Unknown History 2 mg-7.8 mg-325 mg efferves. tablet (Mckayla-[place] Plus Cold (PE)) ondansetron HCl 4 mg tablet 4 mg PO Q6H PRN Nausea And Vomiting 05/29/24 05/29/24 Unknown History Allergies Allergy/AdvReac Type Severity Reaction Status Date / Time No Known Allergies Allergy Verified 11/02/23 16:30 PFSH Acute 2 PFSH: Medical History No pertinent past medical history Surgical History No pertinent past surgical history Social History Smoking and tobacco/nicotine status: never used tobacco/nicotine Alcohol intake: never Substance/Drug Use: never Vitals/I&O/Wt Last Vital Signs Temp 97.3 F L 05/29/24 07:24 Pulse 123 H 05/29/24 08:11 Resp 30 H 05/29/24 08:11 BP 103/46 05/29/24 08:11 Pulse Ox 100 05/29/24 08:11 Weight last 48 hrs Weight 215 lb Physical Exam 2 Narrative: Patient is intubated and sedated, abdominal examination shows a distended abdomen. Tenderness unable to be evaluated by per prior reports no significant tenderness on examination was noted. Data 05/29/24 07:36 05/29/24 07:36 Micro: Microbiology 05/29/24 08:30 Blood Culture - Preliminary Blood SPECIMEN COLLECTED 05/29/24 08:29 Blood Culture - Preliminary Blood SPECIMEN COLLECTED A&P Assessment and plan (1) Pulmonary embolism: Qualifiers: Acute cor pulmonale presence: with acute cor pulmonale Chronicity: u nspecified Pulmonary embolism type: unspecified Qualified Code(s): I26.09 - Other pulmonary embolism with acute cor pulmonale (2) Adynamic ileus: (3) Enteritis: Plan This is a 38-year-old male with multiple comorbidities and disabilities who presents in septic shock and is now status post cardiac arrest with return of the spontaneous circulation. From the surgical standpoint CT scan show evidence of adding adynamic ileus and severe enteritis. The complete small bowel appears to be affected by this process. There is no evidence of pneumatosis or free air.. At this point in time there is no indication for acute surgical intervention. The imaging findings showing the complete small bowel being affected by edema and hyperenhancement are more consistent with a severe enteritis that any other pathology, and even in the case of additional pathology causing bowel suffering to the entire small bowel, this would not be amenable for surgical treatment due to extension of bowel involvement and patient clinical status. I recommend that we start NG tube decompression and keep the patient completely n.p.o. I will continue doing serial abdominal exams. I recommend a goals of care discussion by primary team that patient risk of mortality is extremely elevated at this point, especially after cardiac arrest. General surgery will remain available. PDMP PDMP Reviewed: Not Reviewed Coding Level of Care Code Acute Code for g Fwd Diagnoses Pulmonary embolism I26.09 Acute cor pulmonale presence: with acute cor pulmonale Chronicity: unspecified Pulmonary embolism type: unspecified Adynamic ileus K56.0 Enteritis K52.9
--- NOTE | 2024-05-29 09:57 | USCV_ITS ---
[facility] Age: 38 Gender: M : 1985 Exam Date: 05/29/2024 14:14 Ordering Phys: Marco Valenzuela MD Technologist: Ronald Blunt Exam Location: [facility] [place] Indication: sob BP: 96 / 70 HR: 97 Rhythm: Sinus Technical Quality: Adequate MEASUREMENTS (Male / Female) Normal Values 2D ECHO LV Diastolic Diameter PLAX 3.4 cm 4.2 - 5.9 / 3.9 - 5.3 cm IVS Diastolic Thickness 0.9 cm 0.6 - 1.0 / 0.6 - 0.9 cm IVS Systolic Thickness 1.1 cm LVPW Diastolic Thickness 1.0 cm 0.6 - 1.0 / 0.6 - 0.9 cm LVPW Systolic Thickness 1.3 cm LVOT Diameter 2.1 cm LV Ejection Fraction 2D Teich 73.2 % LV Ejection Fraction MOD 4C 53.4 % LV Ejection Fraction MOD 2C 57.0 % LV Ejection Fraction 2C AL 56.1 % LA Diameter 3.1 cm RA Systolic Volume 4C AL 22.4 ml RA Systolic Volume 4C MOD 21.8 ml Aorta at Sinotubular Diameter 2.5 cm IVC Diameter 1.0 cm M-MODE LA Ao Ratio MM 1.0 AV Cusp Separation MM 1.6 cm DOPPLER AV Peak Velocity 94.0 cm/s LVOT Peak Velocity 76.0 cm/s AV Area Cont Eq vti 1.6 cm squared AV Area Cont Eq pk 2.8 cm squared MV Peak Velocity 68.0 cm/s MV Area PHT 3.8 cm squared Mitral E to A Ratio 0.9 TR Peak Velocity 186.0 cm/s TR Peak Gradient 13.8 mmHg TR Mean Velocity 161.0 cm/s TR Mean Gradient 10.9 mmHg TR Velocity Time Integral 60.8 cm PV Peak Velocity 89.0 cm/s RV Ejection Time 0.2 s FINDINGS Left Ventricle Normal left ventricular size, systolic function and wall thickness, with no regional wall motion abnormalities. Left ventricular ejection fraction is estimated at 60 %. Grade I/IV diastolic dysfunction (abnormal relaxation filling pattern), normal to mildly elevated filling pressures. Right Ventricle The right ventricle is normal in size and function. Right Atrium The right atrium is normal in size. Left Atrium The left atrium is normal in size. Mitral Valve Thickened mitral valve. No mitral valve stenosis. Trace mitral valve regurgitation. Aortic Valve Structurally normal aortic valve without significant sclerosis or stenosis. There is no aortic regurgitation. Tricuspid Valve Mild tricuspid valve regurgitation. Pulmonic Valve Structurally normal pulmonic valve without significant stenosis. There is no pulmonic regurgitation. Pericardium Normal pericardium without effusion. Aorta Normal ascending aorta dimension. IVC The inferior vena cava appears normal. CONCLUSIONS Normal left ventricular size, systolic function and wall thickness, with no regional wall motion abnormalities. Left ventricular ejection fraction is estimated at 60 %. Grade I/IV diastolic dysfunction (abnormal relaxation filling pattern), normal to mildly elevated filling pressures. Mild tricuspid valve regurgitation. There is no pericardial effusion. Right atrial pressure is around 5 mm of mercury. Sunny Lal MD (Electronically Signed) Final Date: 29 May 2024 20:42 S
--- NOTE | 2024-05-29 09:57 | USR_ITS ---
PROCEDURE INFORMATION: Exam: US Duplex Lower Extremity Veins, Bilateral Exam date and time: 05/29/2024 11:14 AM Age: 38 years old Clinical indication: Swelling (edema) of limb; Lower extremity, bilateral TECHNIQUE: Imaging protocol: Real-time duplex ultrasound of the bilateral extremities with 2-D iglesias scale, color Doppler flow and spectral waveform analysis including responses to compression and other maneuvers (when performed) with image documentation. Complete exam focused on the lower extremity veins. COMPARISON: CT abdomen pelvis w con* [id number] 05/29/2024 7:46 AM FINDINGS: Right deep veins: Unremarkable. The common femoral, femoral, proximal profunda femoral and popliteal veins are patent without thrombus. Normal Doppler waveforms. Normal compressibility and/or augmentation response. Left deep veins: Unremarkable. The common femoral, femoral, proximal profunda femoral and popliteal veins are patent without thrombus. Normal Doppler waveforms. Normal compressibility and/or augmentation response. Superficial veins: Greater saphenous veins at the saphenofemoral junctions are patent bilaterally without thrombus. Soft tissues: Unremarkable. US/CV venous duplex [facility] [id number] IMPRESSION: No evidence of deep vein thrombosis in either lower extremity..
[2024-05-29 10:00] LABS: Basophils # 0.1 10^3/uL (0.0-0.1); Basophils % 0.2 %; Hematocrit 44.9 % (37-53); Lymphocytes # 0.9 10^3/uL (0.8-4.8); Lymphocytes % 2.7 %; Mean Corpuscular HGB Conc 30.3 g/dL (30-55); Mean Corpuscular Hemoglobin 24.3 pg (27-33); Mean Corpuscular Volume 80.2 fl (82-101); Mean Platelet Volume 10.5 fL (7.4-10.4); Monocytes # 1.2 10^3/uL (0.2-0.9); Monocytes % 3.7 %; Neutrophils # 29.39 10^3/uL (1.8-7.7); Neutrophils % 90.8 %; Nucleated Red Blood Cells # 0.3 /100WBC; Nucleated Red Blood Cells % 0.8 %; Platelet Count 231 10^3/cmm (157-399); Red Cell Distribution Width 21.6 % (12.1-15.1)
--- NOTE | 2024-05-29 10:02 | USR_ITS ---
PROCEDURE INFORMATION: Exam: US Abdomen, Limited; Right Upper Quadrant Exam date and time: 05/29/2024 11:32 AM Age: 38 years old Clinical indication: Abnormal findings; Abnormal radiologic finding of the abdomen; Radiologic exam and body structure: CT; Additional info: Gallbladder and liver TECHNIQUE: Imaging protocol: Real time ultrasound of the abdomen with image documentation. Limited exam focused on the right upper quadrant. COMPARISON: CT abdomen pelvis w con* [id number] 05/29/2024 7:46 AM FINDINGS: Liver: The liver is not enlarged.. There is prominence of the portal triads which can be seen in the setting of liver disease. No focal liver lesions are detected. Gallbladder: The gallbladder is partially contracted. The gallbladder wall appears thickened at 4 mm however this apparent thickening may be due in part or in total to the contracted state of the gallbladder. There is sludge in the gallbladder and there could be small stones here as well. Biliary ducts: The common bile duct is not dilated. Pancreas: No abnormality detected in the pancreatic head. No abnormality detected in the pancreatic body. Pancreatic tail could not be visualized due to bowel-gas. Right kidney: The right kidney measures 9.4 cm in length. There is no hydronephrosis. Intestine: The duodenum is distended and fluid-filled. Portal venous: On this study, no definite flow is demonstrated in the main portal vein, therefore the CT finding of no flow was correct and not related to phase of contrast. 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 This can further be evaluated with a CT venogram with delayed imaging or MR venogram if possible Other: There is ascites as noted on CT. US/US gall bladder [id number] IMPRESSION: 1. No focal lesions detected in the liver. The liver portal triads are prominent however which can be seen in the setting of liver disease 2. Gallbladder is contracted. Gallbladder wall appears thickened which may be due in part or in total to the contracted state of the gallbladder. There does appear to be sludge in the gallbladder and there could be small stones here. There is no biliary ductal dilatation 3. Incomplete visualization of the pancreas 4. No flow was detected in the main portal vein. This coupled with the findings on the CT implies that the entire portal system including superior mesenteric and splenic vein may be thrombosed or that there may be very slow flow in the superior mesenteric and splenic vein due to thrombosis of the main portal vein. This could be followed up with a CT venogram. 5. Ascites 1.
[2024-05-29 10:05] LABS: ABG PH Result 7.14 (7.35-7.45); Oxygen Device VENT
[2024-05-29 10:06] LABS: PO2 FiO2 Ratio Arterial Blood 451
[2024-05-29 10:06] LABS: White Blood Count 32.36 10^3/uL (3.29-11.43)
--- NOTE | 2024-05-29 10:06 | PC.NURSE ---
CODE BLUE; 0905 CPR initiated 0907 Epi IVP 0907 Pulse Check-PEA 0909 Pulse Check-PEA 0910 Intubated with 8.0 ETT 0910 Epi IVP 0911 Pulse Check-PEA 0913 Epi IVP 0913 Pulse Check -ROSC 09 Gtt orders include; Epi and Propofol 0919 R-subclavian Central Line placed by Dr Young 0920 Prop gtt started @20. 0921 Epi gtt started @0.1 mcg/kg/min 0927 40 mcg bolus of Propofol as ordered by Dr Young for sedation. Pt intubated with 8.0 ETT, 25 @lip. Vent settings; 50% FIO2, 480 VT, 16 RR, 5 Peep
[2024-05-29] MEDS: norepinephrine 4 MG/250 ML BAG 30 MG IV (10:07)
[2024-05-29] MEDS: pantoprazole 40 mg SDV IVP (10:10)
[2024-05-29] MEDS: lactated ringers 1,000 ML 999 ML IV (10:10)
[2024-05-29] MEDS: octreotide 500 MCG in sodium chloride 0.9% (100 ml) 100 ML 10.1 MCG IV (10:10)
[2024-05-29 10:12] LABS: INR 1.57 (0.8-1.2)
[2024-05-29 10:13] LABS: Partial Thromboplastin Time 28.7 SECONDS (23.9-36.7)
[2024-05-29 10:14] LABS: Slide Review Slide Review Perform
[2024-05-29] MEDS: sodium bicarbonate 50 MEQ in sodium chloride 0.45% 1,000 ML 100 MEQ IV ×2 (10:15→15:08)
--- NOTE | 2024-05-29 10:15 | PHA.VACGOAL ---
Vancomycin Goal - Goal Vancomycin Goal:: 15-20 mg/L Vancomycin Indication:: Other - Therapy Current therapy:: Pip/Tazo Day of therpy:: Day 1 of [] . Actual body weight (kg): 215 lb - Data Labs: WBC 32.36 10^3/uL (3.29-11.43) H* 05/29/24 09:54 RBC 5.60 10^6/uL (3.85-5.65) 05/29/24 09:54 Hgb 13.60 g/dL (11.27-16.99) 05/29/24 09:54 Hct 44.9 % (37-53) 05/29/24 09:54 MCV 80.2 fl (82-101) L 05/29/24 09:54 MCH 24.3 pg (27-33) L 05/29/24 09:54 MCHC 30.3 g/dL (30-55) 05/29/24 09:54 RDW 21.6 % (12.1-15.1) H 05/29/24 09:54 Sodium 138 mmol/L (136-145) 05/29/24 07:36 Potassium 4.9 mmol/L (3.5-5.1) 05/29/24 07:36 Chloride 90 mmol/L (98-107) L 05/29/24 07:36 Carbon Dioxide 28 mmol/L (22-29) 05/29/24 07:36 Anion Gap 24.9 (5-19) H 05/29/24 07:36 BUN 44 mg/dL (6-20) H 05/29/24 07:36 Creatinine 3.2 mg/dL (0.7-1.2) H 05/29/24 07:36 GFR Calculation 26.3 mL/min (90-130) L 05/29/24 07:36 Last dialysis session:: N/A Treatment plan:: new consult Regimen:: VANCOMYCIN 1000 MG GIVEN IN ER. GIVING AN ADDITIONAL 500 MG DOSE X 1 FOR A 1500 MG LOADING DOSE. MAINTENANCE DOSE OF 1500 MG Q24H PER DOSING PROTOCOL. Follow up:: WILL CONTINUE TO MONITOR AND FOLLOW UP DAILY
[2024-05-29 10:27] LABS: Estmated Average Glucose 163; Hemoglobin A1C 7.3 % (4.0-6.0)
[2024-05-29 10:28] LABS: Total Bilirubin 4.3 mg/dL (0.15-1.2)
[2024-05-29 10:32] LABS: ABG PCO2 41.3 mmHg (35-45); Alveolar-Arterial Oxygen Gradi 27.2 mmHg (5-10); Arterial Blood Gas Hematocrit 41.3 % (42-52); Base Excess ABG -5.8 mmol/L (-2.0-2.0); Blood Gas Allen Test Pos; Blood Gas Operator Identificat WALCI; Blood Gas Sample Site Radial, right; Blood Gas Sample Type Arterial; Blood Gas Tidal Volume 0.48; Carboxyhemoglobin 1.8 %THgb (0.4-20.1); HCO3 ABG 20.3 mmol/L (22-26); HGB O2 Sat 92.3 % (95-100); Ionized Calcium Level - ABG 1.1 mmol/L (1.1-1.4); Methemoglobin 0.8 % (0.4-1.5); Oxygen Device VENT; Oxygen Saturation ABG 94.8; PO2 ABG 87.8 mmHg (80.0-100.0); PO2 FiO2 Ratio Arterial Blood 175; Potassium Level - ABG 4.1 mmol/L (3.5-5.0); Total Hemoglobin 13.5 g/dL (14-18)
[2024-05-29 10:38] LABS: Procalcitonin 3.47 ng/mL (0-0.5); Thyroid Stimulating Hormone 0.32 uIU/mL (0.27-4.20)
[2024-05-29 10:40] LABS: Troponin 5 2HR 34.71 ng/L (0-15); Troponin 5 2HR Delta 1.71 ABS# (0-10)
[2024-05-29 10:45] LABS: Lactic Acid level (Lactate) 9.8 mmol/L (0.5-2.2)
[2024-05-29] MEDS: albumin 25 G/100 ML BAG 60 G IV (10:58)
--- NOTE | 2024-05-29 11:03 | ECG_ITS ---
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: : 1985 Requested By: Veronique Young Order Number: [id number] Reading MD: MAMADOU MONTILLA Measurements Intervals [place] Rate: 101 P: 58 VA: 129 QRS: 62 QRSD: 93 T: 61 QT: 352 QTc: 458 Interpretive Statements SINUS TACHYCARDIA MINIMAL ST DEPRESSION [0.025+ mV ST DEPRESSION] ABNORMAL RHYTHM ECG Compared to ECG 05/29/2024 08:52:29 Short VA interval no longer present Intraventricular conduction delay no longer present ST (T wave) deviation still present Electronically Signed On 05-31-2024 18:19:06 CDT by MAMADOU MONTILLA [email or web address]
[2024-05-29] MEDS: vancomycin 500 MG in sodium chloride 0.9% (plus) 100 ML 200 MG IV (11:05)
--- NOTE | 2024-05-29 11:05 | PC.NURSE ---
at approx 0855 pt became stiff, vomiting dark brown/red emesis. HOB 90 deg at this point. @0904 pt became unresponsive. this nurse, ED charge, ED physician unable to feel pulse @0905, began CPR and code blue called overhead. see dope dry house operator note for code blue medications. suction set up at bedside, pt on quality assurance monitor body, ZOLL pads placed on pt.
[2024-05-29] MEDS: sucralfate 1 gm/10 mL Oral Liq UDC PO ×2 (11:14→15:31)
--- NOTE | 2024-05-29 11:29 | PC.NURSE ---
report called to ICU by Application Coordinator. pt transported to ICU approx @1020 by this nurse, military administrative technician, respiratory on cardiac monitoring
--- NOTE | 2024-05-29 11:30 | PC.NURSE ---
output total of 700mL gastric content
[2024-05-29 11:47] LABS: Glucose Point of Care 171 mg/dL (70-110)
[2024-05-29 11:52] LABS: Bilirubin Urine 1+ (Negative); Blood Urine 1+ (Negative); Glucose Urine UA Negative (Normal); Ketones Urine Negative (Negative); Leukocyte Esterase Urine Trace (Negative); Nitrate Urine Negative (Negative); Protein Urine 2+ (Negative); Urine Appearance Cloudy (CLEAR); Urine Color Dark Yellow (Yellow); pH Urine 5.5 (5-7)
[2024-05-29] MEDS: insulin lispro 100 unit/1 mL SUBCUT (11:52)
[2024-05-29 11:57] LABS: Add Urine Microscopic? YES; Hyaline Casts Urine 46.34 /lpf; RBC Urine 0-2 /hpf (0-2); WBC Urine 21-50 /hpf (0-5)
[2024-05-29 12:13] LABS: Add Urine Culture? Yes; Bacteria Urine 1+ /hpf; Coarse Granular Casts Urine 0-4 /lpf; Specific Gravity, Urine 1.064 (1.005-1.030); UA Slide Review UA Slide Review Perf
[2024-05-29 12:27] LABS: Influenza A NEGATIVE (Negative); Influenza B NEGATIVE (Negative); Respiratory Syncytial Virus Ce NEGATIVE (Negative); SARS-CoV-2 PCR NEGATIVE (Negative)
--- NOTE | 2024-05-29 12:48 | P.HP_ITS ---
Providers/Chief Complaint 2 Admitting Physician: Marco Valenzuela MD Chief Complaint: vomiting blood History of Present Illness Jb Tilley is a 38 year old male with a past medical history of pulmonary embolism, off anticoagulation therapy, history of Down syndrome, nonverbal at baseline, who presents [facility] due to increased abdominal distention, abdominal pain, lack of bowel movements, coffee-ground emesis, projectile vomiting. Currently patient is intubated, sedated, on mechanical ventilation, was not able to get history from patient. According to ER provider and staff, there has been complaints of increased abdominal distention, lack of bowel movements, episodes of vomiting this morning concerns for coffee-ground emesis, distended abdomen. I spoke to nursing staff at custodial, they confirmed that at baseline he is nonverbal, can feed himself, but does require cueing can help with transfers, since Friday he has not had any bowel movements, reports of increased abdominal distention, KUB ordered did not have any specific findings, started on a bowel regimen, no significant response, he had an episode of vomiting yesterday, had an episode of coffee- ground emesis this morning, with projectile vomiting. He is off his Eliquis for his history of pulmonary embolism. No reported bloody or black stools. No real recent illness, he has been at his baseline for the last few weeks. While in the emergency room, patient had an episode of aspiration into airway, CODE BLUE was called, PEA on the monitor, ROSC after 3 rounds of CPR, and epinephrine, he was intubated by ER provider. He was examined by me, maps 55-60, Levophed has been ordered by me, ordered LR bolus, has received broad-spectrum antibiotics, started on Protonix, Carafate, orogastric tube in place with feculent and dark red output. He is on 100% FiO2, urine output currently is lackluster,. Currently on propofol for sedation, does not follow commands, does home withdraw from pain, pupils are deviated down and in bilaterally. Reviewed CT abdomen and pelvis findings with general surgery, plan on medical management for now, patient is not a surgical candidate patient is critically ill no plans on surgical intervention or EGD. Reviewed CTA results, as there is concerns for possible GI bleed, with his coffee-ground emesis at the custodial, he does have linear defects in the left upper lobe which is suspicious for possible subacute pulmonary embolism but could be artifact. Another suspicious area in the possible branch vessel in the right lower lobe inferiorly but could be artifact. For now we will hold off on anticoagulation therapy follow INR, hemoglobin, monitor his clinical progress as he moves to the ICU, ultrasound abdomen ordered to evaluate liver due to his transaminitis. Patient was again seen in the ICU, receiving bedside ultrasound of the abdomen, currently on 12 of Levophed, 100% FiO2, maps about 65, continues to have evidence of severe septic shock, peripheral extremities are cool to touch, urine output remains lackluster, repeat ABG results reviewed, lactic acid up to 9.8. WBC 32.36, hemoglobin is 13. 6, INR 1.57 ABG 7.3, bicarb 20.3, creatinine 3.2, bili is 4.3, AST 273, ALT 146, alk phos 222, UA with evidence of UTI is on broad-spectrum antibiotic therapy for his aspiration event/aspiration pneumonia. Venous ultrasound negative for DVT. Respiratory viral panel within normal limits. Spoke to the [facility], patient's ultrasound abdomen shows that there is no flow detected in the portal vein, concerns for entire portal system including superior mesenteric and splenic vein may be thrombosed, with ascites. Thus, I think likely what has happened to Jb is that he developed acute portal vein thrombosis, then subsequently bowel ischemia, resulting in his complaints of abdominal pain, distention, lack of bowel movements, which then progressed to his intractable nausea and vomiting feculent material and/or coffee-ground emesis. Then here in the hospital he had a aspiration event in the emergency room, resulting in his cardiac arrest episode. Discussed with general surgery, discussion about future directives, patient's goals of care, CT scan and abdomen ultrasound abdomen findings, anticoagulant therapy. Given patient's liver ultrasound findings, discussion about anticoagulant therapy, with patient's coffee-ground emesis, evidence of portal vein thrombosis, with evidence of thrombosis of splenic vein, superior mesenteric vein, concerns for intestinal ischemia. Discussed with general surgery, highly suspicious for extensive thrombosis involving portal vein, and mesenteric venous arches resulting in intestinal ischemia, likely will result in infarction, likely from acute portal vein thrombosis. Certainly this is a difficult situation, anticoagulation versus holding off on anticoagulation therapy, given portal vein thrombosis, with evidence of increased abdominal distention, highly suspicious for intestinal ischemia, but on the other hand, with his coffee-ground emesis there is a concern for possible upper GI bleed, no evidence of liver cirrhosis on the CT scan, no evidence of varices/esophageal varices/abdominal varices on CT scan, no evidence of gastric ulcer on CT scan, after detailed discussion, recommend starting anticoagulant therapy. I have also reached out to [facility] for their thoughts of catheter directed thrombolysis of the portal vein, to see what the IR team thinks, I am currently waiting for callback. I spoke to patient's next of kin patient's sister, Joslyn Black. Discussed events, Jb's abdominal distention, nausea vomiting, likely from portal vein thrombosis/splenic vein/superior mesenteric vein, resulting in it likely intestinal ischemia, causing coffee-ground emesis and or nausea and and vomiting of feculent material that he was experiencing. In the emergency room, he had a episode of vomiting, resulting in aspiration event, resulting in cardiac arrest, with PEA, with ROSC after 3 minutes of CPR, epi, currently intubated on mechanical ventilation, with multi organ failure, acute renal failure, transaminitis. Certainly this is a difficult situation I cannot completely rule out upper GI bleed, however his hemoglobin so far has remained stable, he is on 12 Levophed in the ICU on 100% FiO2, urine output remains lackluster abdomen is distended/lack of bowel sounds, and he is critically ill, overall prognosis is poor. Also discussed his CT chest findings of possible pulmonary embolism, however this could be artifact, and I do not believe that these 2 areas of pulmonary embolism are playing a significant role currently in his clinical condition. Discussed plans on anticoagulation for portal vein thrombosis, discussed morbidity and mortality associated, she voiced understanding, all questions answered, agreed to proceed. She wants everything to be done for Jb according to her words, she does not want him to . Discussed my conversation with patient's custodial, patient can ambulate with assistance he can take a few steps on his own, he can sit at the dinner table and eat on his own but does not require frequent cueing, but is nonverbal. Discussed goals of care, his decreased functional status at baseline, his critically ill status prognosis overall being poor. Currently intubated requiring pressor support, with multiorgan failure, with evidence of portal vein thrombosis, intestinal ischemia, possible GI bleed, critically ill state. However patient's sister wants everything to be done for Jb. I discussed with her that Jb has a higher morbidity and mortality, high risk of clinical deterioration, and I will keep her updated as the day progresses. Discussed that I am reaching out to tertiary center for consideration of catheter directed thrombolysis, however given his current condition any procedure would carry significant morbidity and mortality, and the transport alone would carry significant morbidity mortality and currently in the condition I do not think you will likely survive the trip. Review of Systems 2 General: Reports: ROS unobtainable due to endotracheal tube Medications/Allergies Home Medications ?Medication ?Instructions ?Recorded ?Confirmed ?Last Taken ?Type acetaminophen 325 mg tablet 650 mg PO Q6H PRN Fever Or Pain 11/02/23 05/29/24 05/27/24 History (Tylenol) bisacodyl 10 mg rectal suppository 10 mg CO DAILY PRN Constipation 11/02/23 05/29/24 05/28/24 History cetirizine 10 mg tablet (Zyrtec) 10 mg PO DAILY PRN Al lergy Symptoms 11/02/23 05/29/24 Unknown History magnesium hydroxide 400 mg/5 mL 400 mg PO DAILY PRN Co nstipation 11/02/23 05/29/24 05/28/24 History oral suspension (Milk of Magnesia) polyethylene glycol 3350 17 gram 17 g PO DAILY PRN Con stipation 11/02/23 05/29/24 05/28/24 History oral powder packet (Miralax) sennosides 8.6 mg tablet (senna) 8.6 mg PO DAILY PRN C onstipation 11/02/23 05/29/24 Unknown History sodium phosphates 19 gram-7 118 ml CO DAILY PRN Consti pation 11/02/23 05/29/24 05/28/24 History gram/118 mL enema (Fleet Enema) glucometer testing kit #1 ea 11/05/23 05/29/24 Unkn own Rx bismuth subsalicylate 262 mg/15 mL 524 mg PO QID 05/2905/29/24 Unknown History oral suspension (Pepto-Bismol) biipubcuapeoirto-nwqyrzspy-lanqbup 2 ea PO Q12H PRN Al lergy Symptoms 05/29/24 05/29/24 Unknown History 2 mg-7.8 mg-325 mg efferves. tablet ([place] Plus Cold (PE)) ondansetron HCl 4 mg tablet 4 mg PO Q6H PRN Nausea And Vomiting 05/29/24 05/29/24 Unknown History Allergies Allergy/AdvReac Type Severity Reaction Status Date / Time No Known Allergies Allergy Verified 11/02/23 16:30 PFSH Acute 2 PFSH: Medical History No pertinent past medical history Surgical History No pertinent past surgical history Social History Smoking and tobacco/nicotine status: never used tobacco/nicotine Alcohol intake: never Substance/Drug Use: never Vitals/I&O/Wt Last Vital Signs Temp 97.3 F L 05/29/24 07:24 Pulse 99 05/29/24 11:30 Resp 18 05/29/24 11:29 BP 94/66 05/29/24 11:30 Pulse Ox 93 05/29/24 11:30 O2 Del Method Mechanical Ventilation 05/29/24 11:00 FiO2 50 05/29/24 10:53 05/28/24 05/29/24 05/29/24 22:59 06:59 14:59 Intake Total 3312.495 / 3312.495 Balance 3312.495 / 3312.495 Weight last 48 hrs Weight 97.522 kg Weight 97.522 kg Physical Exam 2 Const: COMMON NORMALS: no acute distress ORIENTATION/CONSCIOUSNESS: not awake, not oriented to person and not oriented to place OTHER: Intubated, sedated on mechanical ventilation HENMT: COMMON NORMALS: normocephalic Eye: OTHER: Pupils are minimally reactive to light, deviated inwards Neck/C-Spine: COMMON NORMALS: no lymphadenopathy Resp: COMMON NORMALS: normal respiratory effort, No retractions and No use of accessory muscles AUSCULTATION: crackles and wheezes Cardio: COMMON NORMALS: regular rate, regular rhythm, S1 normal heart sound present and S2 normal heart sound present RATE: regular rate RHYTHM: r egular rhythm HEART SOUNDS: S1 normal heart sound present and S2 normal heart sound present GI: OTHER: Abdomen soft, distended, no guarding, no rebound, no rigidity, no bowel sounds : COMMON NORMALS: Yes no CVA tenderness Extremity: NARRATIVE EXTREMITY EXAM: DP PT pulses diminished bilaterally, no pitting edema Neuro: OTHER: Does not follow neurologic testing, does not withdraw from pain, does not localize pain, currently on sedation Sepsis: Is patient septic: Yes Focused sepsis exam performed: Yes F ocused sepsis exam: DP PT pulses diminished bilaterally, cap refill greater than 2 seconds, mild mottling bluish to bilateral lower extremities Date exam was performed: 05/29/24 Time exam was performed: 09:00 Data 05/29/24 09:54 05/29/24 07:36 Micro: Microbiology 05/29/24 08:30 Blood Culture - Preliminary Blood SPECIMEN COLLECTED 05/29/24 08:29 Blood Culture - Preliminary Blood SPECIMEN COLLECTED A&P Assessment and plan (1) Cardiac arrest: (2) Pulmonary embolism: Qualifiers: Acute cor pulmonale presence: with acute cor pulmonale Chronicity: u nspecified Pulmonary embolism type: unspecified Qualified Code(s): I26.09 - Other pulmonary embolism with acute cor pulmonale (3) Down syndrome: (4) Portal vein thrombosis: (5) Acute intestinal ischemia: (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: (8) Aspiration into airway: (9) Septic shock: (10) Acute hypoxic respiratory failure: (11) Transaminitis: (12) Lactic acidosis: (13) Acute renal failure: Plan Cardiac arrest -After aspiration event into airway -With PEA, ROSC after 3 minutes, 3 rounds of CPR, epi Aspiration event into airway -Intubated -On propofol for sedation Acute hypoxic respiratory failure -From aspiration into airway, aspiration pneumonia Plan -Oral gastric tube in place -Intubated -Sedated, propofol, fentanyl for sedation -Vancomycin, Zosyn -Minimize tidal volume, minimize FiO2 -Monitor respiratory status closely -Oral gastric tube in place -Aggressive pulmonary toilet Septic shock -From aspiration into airway -Intestinal ischemia -Maintain MAP greater than 65 -Currently on Levophed -Follow blood cultures -Currently on Vanco and Zosyn -Bicarb drip Portal vein thrombosis -With evidence of thrombosis of thrombosis entire portal system including superior mesenteric and splenic vein 4. No flow was detected in the main portal vein. This coupled with the findings on the CT implies that the entire portal system including superior mesenteric and splenic vein may be thrombosed or that there may be very slow flow in the superior mesenteric and splenic vein due to thrombosis of the main portal vein. This could be followed up with a CT venogram. 5. Ascites -With evidence of intestinal ischemia, abdominal distention, lack of bowel sounds lactic acidosis Plan: -General Surgery consulted -Heparin drip -Awaiting a callback from [facility] in [facility] for consideration of catheter directed thrombolysis -Bicarb drip -Monitor hemoglobin every 6 hours -Monitor lactic acid every 6 hours -Broad-spectrum antibiotic therapy as above Acute intestinal ischemia -Secondary to portal vein thrombosis as above -Broad-spectrum antibiotic therapy -Heparin drip -General Surgery consulted Concerns for possible upper GI bleed with coffee-ground emesis? -Protonix, Carafate -No episodes of coffee-ground emesis observed here -But does have feculent/dark red output from orogastric tube -Risks and benefits of anticoagulation discussed with patient's sister, for acute portal vein thrombosis, she voiced understanding, all consents are, agreed to proceed -Monitor hemoglobin every 6 hours Concerns for pulmonary embolism, with history of pulmonary embolism -CT angiogram the chest 2. Linear filling defects seen in a left upper lobe branch vessel is suspicious for possible subacute pulmonary embolus here however this may all be artifact . There is also another suspicious area for possible branch vessel pulmonary embolus in the right lower lobe inferiorly which could be acute or subacute branch vessel pulmonary embolus but again this appearance may be due to artifact. Recommend repeating this study when patient able. There is no central pulmonary embolus detected. -Venous ultrasound negative for DVT -It is not exactly clear if this is playing a role into his respiratory failure -Has a history of pulmonary embolism, was on anticoagulant therapy, was taken off Plan -Currently on heparin drip -But might need to be held based upon his clinical progress, hemoglobin trend, possible future episodes of coffee-ground emesis Acute renal failure, creatinine 3.2 urine output lackluster might require dialysis based on clinical progress Transaminitis Lactic acidosis Type 2 diabetes mellitus, lung sliding scale Full code Heparin drip for DVT prophylaxis PDMP PDMP Reviewed: Not Reviewed Attestations 2 Medical Necessity Statement*: Patient requires hospitalization, inpatient, greater than 2 midnights, for portal vein thrombosis, intestinal ischemia, concerns for possible upper GI bleed, septic shock, acute renal failure, aspiration event, cardiac arrest, multiorgan failure Coding Level of Care Code Critical Care >/= 30 minutes Critical care time (in minutes): 70 The high probability of a clinically significant, sudden or life threatening deterioration, as referenced in this documentation, required my full and direct attention, intervention and personal management. The critical care time shown is in addition to time spent performing any reported separately billable procedures and includes the following: [x] Data and vital sign review and interpretation [x ] Patient assessment, examination and intervention [x] Medication orders and management [x] Patient/Family updates as able [x] Care Coordination and Documentation. Diagnoses Cardiac arrest I46.9 Pulmonary embolism I26.09 Acute cor pulmonale presence: with acute cor pulmonale Chronicity: unspecified Pulmonary embolism type: unspecified Down syndrome Q90.9 Portal vein thrombosis I81 Acute intestinal ischemia K55.059 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
--- NOTE | 2024-05-29 13:02 | P.MISC_ITS ---
Miscellaneous Note Purpose of Documentation: Update on patient care Note: Abdominal US showed evidence of lack of portal venous flow, concerning for thrombosis of the portal system as well as superior mesenteric vein. With this context the findings in CT scan of the abdomen and pelvis likely represent small bowel congestion and edema due to lack of venous outflow. this will likely progress to global intestinal ischemia unless portal vein flow can be reestabli shed. Patient should be started on therapeutic anticoagulation with heparin drip. Unfortunatelly, even with anticoagulation and supportive care the rate of mortality for this pathology is extremelly elevated. If patient condition allows and he remains stable transfer to higher level of care for catheter directed thrombolisis could be considered. No additional surgical intervention is indicated at this time.
[2024-05-29] MEDS: heparin 5,000 unit/mL INJ 1 mL IVP (13:16)
[2024-05-29] MEDS: heparin drip 25,000 UNIT/500 ML PREMIX 27 UNIT IV (13:16)
[2024-05-29 13:17] LABS: Hematocrit 46.3 % (37-53); Platelet Count 217 10^3/cmm (157-399)
--- NOTE | 2024-05-29 13:39 | PC.NURSE ---
from er og tube placed to suction with return of brownish foul smelling oral care done , to vent fio2 increased after settling pt in room sats dropped propofol gtt , levophed and bicarb infusing , octreitde stopped at this time and heparin per protocal after verifiing pupils noted sluggish eyes deviated toward septum, extremities stiff and rigid , not follow any directions ,did have episode of what appeared to be hiccups
[2024-05-29 15:03] LABS: Anion Gap 20.8 (5-19); Blood Urea Nitrogen 41 mg/dL (6-20); Carbon Dioxide 24 mmol/L (22-29); Chloride 96 mmol/L (98-107); Creatinine Clr Calc Pharmacy 51.0412; Glomerular Filtration Rate 40.5 mL/min (90-130); Glucose 134 mg/dL (65-115); Osmolality Calculated 294 mOsm/kg (285-295); Potassium 4.8 mmol/L (3.5-5.1); Sodium 136 mmol/L (136-145)
[2024-05-29 15:04] LABS: Troponin 5 6HR 112.2 ng/L (0-15); Troponin 5 6HR Delta 79.2 ng/L (0-12)
--- NOTE | 2024-05-29 15:24 | PM.CCNAC ---
Critical Care Event Note The high probability of a clinically significant, sudden or life threatening deterioration of the patient's [] system(s) required my full and direct attention, intervention and personal management. The critical care time is as shown. This time is in addition to time spent performing any reported procedures but includes the following: [x] Data and vital sign review and interpretation [x] Patient assessment, examination and intervention [x] Documentation [x] Medication orders and management Critical Care Time Code activated: No Critical Care Time (min): 40 Additional information about critical care time: Patient was reexamined throughout the morning into the afternoon -Was reexamined in the afternoon, on 80% FiO2, 12 Levophed, normal sinus rhythm, respiratory rate 15, afebrile -Mottling of lower extremities is improving, abdomen remains distended -Spoke to [facility], spoke to the IR team, about case, consideration of catheter directed thrombolysis, recommended continue antibiotics, IV heparin, they would discuss the case and get back to us. IR team at [facility] has accepted patient, for consideration of catheter directed thrombolysis. Spoke to supervisor central supply at [facility], spoke to him about the case in detail, events have unfolded while here in the hospital, patient's portal vein thrombosis, with evidence of intestinal ischemia, with aspiration, aspiration event resulting cardiac arrest, currently in shock, septic shock, acute renal failure, acute respiratory failure, on 12 Levophed 80% FiO2 currently looking stable, status remains critical, prognosis is poor, however patient's family wants everything to be done, after speaking with supervisor central supply, patient has been accepted -However patient's currently on 80% FiO2 12 of Levophed, status is critical, transportation will be an issue, as due to weather conditions I am not exactly sure if life flight will take him, and 3 hours ambulance ride to [facility] is significant. Nonetheless he has risk of significant morbidity mortality during transport -I spoke to patient's Sister Joslyn Black, discussed the events since the last I spoke with her, Jb's current clinical status, discussed his acceptance at [facility], -Discussed risk and benefits of transfer, Joslyn voiced understanding, all questions are, she wants to go ahead and proceed to transfer to [facility] for consideration of catheter directed thrombolysis for portal vein thrombosis, she is aware that his condition carry significant morbidity and mortality, but she wants everything to be done for Jb, she does not want him to -Discussed morbidity and mortality and transport, certainly his condition is better, but he has significant risk of in transport, I am going to do my best to stabilize him further, but that risk still exists, and it is a significant risk. After discussing the risk benefits, she voiced understanding, all questions answered, agreed to proceed -Will do my best to see if life alert can fly before whether returns back, other option would be fixed wing versus ground transportation Coding Level of Care Code Acute Code for g Sg
--- NOTE | 2024-05-29 15:29 | P.TS_ITS ---
Transfer Summary Providers Date of Admission: 05/29/24 10:02 Date of Discharge/Transfer: 05/29/24 Attending Provider at Admission: Marco Valenzuela MD Attending Provider at Transfer: Marco Valenzuela MD Transfer Plans: Anticipated date of transfer: 05/29/24 . 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: Status: Acute (8) Aspiration into airway: Status: Acute (9) Septic shock: Status: Acute (10) Acute hypoxic respiratory failure: Status: Resolved (11) Transaminitis: Status: Acute (12) Lactic acidosis: Status: Acute (13) Acute renal failure: Status: Acute Reason for Visit Reason for Visit vomiting blood Hospital Course Hospital Course Muhammad Tilley is a 38 year old male with a past medical history of pulmonary embolism, off anticoagulation therapy, history of Down syndrome, nonverbal at baseline, who presents [facility] due to increased abdominal distention, abdominal pain, lack of bowel movements, coffee-ground emesis, projectile vomiting. Currently patient is intubated, sedated, on mechanical ventilation, was not able to get history from patient. According to ER provider and staff, there has been complaints of increased abdominal distention, lack of bowel movements, episodes of vomiting this morning concerns for coffee-ground emesis, distended abdomen. I spoke to nursing staff at alf, they confirmed that at baseline he is nonverbal, can feed himself, but does require cueing can help with transfers, since Friday he has not had any bowel movements, reports of increased abdominal distention, KUB ordered did not have any specific findings, started on a bowel regimen, no significant response, he had an episode of vomiting yesterday, had an episode of coffee- ground emesis this morning, with projectile vomiting. He is off his Eliquis for his history of pulmonary embolism. No reported bloody or black stools. No real recent illness, he has been at his baseline for the last few weeks. While in the emergency room, patient had an episode of aspiration into airway, CODE BLUE was called, PEA on the monitor, ROSC after 3 rounds of CPR, and epinephrine, he was intubated by ER provider. He was examined by me, maps 55-60, Levophed has been ordered by me, ordered LR bolus, has received broad-spectrum antibiotics, started on Protonix, Carafate, orogastric tube in place with feculent and dark red output. He is on 100% FiO2, urine output currently is lackluster,. Currently on propofol for sedation, does not follow commands, does home withdraw from pain, pupils are deviated down and in bilaterally. Reviewed CT abdomen and pelvis findings with general surgery, plan on medical management for now, patient is not a surgical candidate patient is critically ill no plans on gibson rgical intervention or EGD. Reviewed CTA results, as there is concerns for possible GI bleed, with his coffee-ground emesis at the alf, he does have linear defects in the left upper lobe which is suspicious for possible subacute pulmonary embolism but could be artifact. Another suspicious area in the possible branch vessel in the right lower lobe inferiorly but could be artifact. For now we will hold off on anticoagulation therapy follow INR, hemoglobin, monitor his clinical progress as he moves to the ICU, ultrasound abdomen ordered to evaluate liver due to his transaminitis. Patient was again seen in the ICU, receiving bedside ultrasound of the abdomen, currently on 12 of Levophed, 100% FiO2, maps about 65, continues to have evidence of severe septic shock, peripheral extremities are cool to touch, urine output remains lackluster, repeat ABG results reviewed, lactic acid up to 9.8. WBC 32.36, hemoglobin is 13. 6, INR 1.57 ABG 7.3, bicarb 20.3, creatinine 3.2, bili is 4.3, AST 273, ALT 146, alk phos 222, UA with evidence of UTI is on broad-spectrum antibiotic therapy for his aspiration event/aspiration pneumonia. Venous ultrasound negative for DVT. Respiratory viral panel within normal limits. Spoke to the V RADS, patient's ultrasound abdomen shows that there is no flow detected in the portal vein, concerns for entire portal system including superior mesenteric and splenic vein may be thrombosed, with ascites. Thus, I think likely what has happened to Jb is that he developed acute portal vein thrombosis, then subsequently bowel ischemia, resulting in his complaints of abdominal pain, distention, lack of bowel movements, which then progressed to his intractable nausea and vomiting feculent material and/or coffee-ground emesis. Then here in the hospital he had a aspiration event in the emergency room, resulting in his cardiac arrest episode. Discussed with general surgery, discussion about future directives, patient's goals of care, CT scan and abdomen ultrasound abdomen findings, anticoagulant therapy. Given patient's liver ultrasound findings, discussion about anticoagulant therapy, with patient's coffee-ground emesis, evidence of portal vein thrombosis, with evidence of thrombosis of splenic vein, superior mesenteric vein, concerns for intestinal ischemia. Discussed with general surgery, highly suspicious for extensive thrombosis involving portal vein, and mesenteric venous arches resulting in intestinal ischemia, likely will result in infarction, likely from acute portal vein thrombosis. Certainly this is a difficult situation, anticoagulation versus holding off on anticoagulation therapy, given portal vein thrombosis, with evidence of increased abdominal distention, highly suspicious for intestinal ischemia, but on the other hand, with his coffee-ground emesis there is a concern for possible upper GI bleed, no evidence of liver cirrhosis on the CT scan, no evidence of varices/esophageal varices/abdominal varices on CT scan, no evidence of gastric ulcer on CT scan, after detailed discussion, recommend starting anticoagulant therapy. I have also reached out to [facility] for their thoughts of catheter directed thrombolysis of the portal vein, to see what the IR team thinks, I am currently waiting for callback. I spoke to patient's next of kin patient's sister, Joslyn Black. Discussed dilan desouza Jb's abdominal distention, nausea vomiting, likely from portal vein thrombosis/splenic vein/superior mesenteric vein, resulting in it likely intestinal ischemia, causing coffee-ground emesis and or nausea and and vomiting of feculent material that he was experiencing. In the emergency room, he had a episode of vomiting, resulting in aspiration event, resulting in cardiac arrest, with PEA, with ROSC after 3 minutes of CPR, epi, currently intubated on mechanical ventilation, with multi organ failure, acute renal failure, transaminitis. Certainly this is a difficult situation I cannot completely rule out upper GI bleed, however his hemoglobin so far has remained stable, he is on 12 Levophed in the ICU on 100% FiO2, urine output remains lackluster abdomen is distended/lack of bowel sounds, and he is critically ill, overall prognosis is poor. Also discussed his CT chest findings of possible pulmonary embolism, however this could be artifact, and I do not believe that these 2 areas of pulmonary embolism are playing a significant role currently in his clinical condition. Discussed plans on anticoagulation for portal vein thrombosis, discussed morbidity and mortality associated, she voiced understanding, all questions answered, agreed to proceed. She wants everything to be done for Jb according to her words, she does not want him to . Discussed my conversation with patient's alf, patient can ambulate with assistance he can take a few steps on his own, he can sit at the dinner table and eat on his own but does not require frequent cueing, but is nonverbal. Discussed goals of care, his decreased functional status at baseline, his critically ill status prognosis overall being poor. Currently intubated requiring pressor support, with multiorgan failure, with evidence of portal vein thrombosis, intestinal ischemia, possible GI bleed, critically ill state. However patient's sister wants everything to be done for Jb. I discussed with her that Jb has a higher morbidity and mortality, high risk of clinical deterioration, and I will keep her updated as the day progresses. Discussed that I am reaching out to tertiary center for consideration of catheter directed thrombolysis, however given his current condition any procedure would carry significant morbidity and mortality, and the transport alone would carry significant morbidity mortality and currently in the condition I do not think you will likely survive the trip. PLAN: Cardiac arrest -After aspiration event into airway -With PEA, ROSC after 3 minutes, 3 rounds of CPR, epi Aspiration event into airway -Intubated -On propofol for sedation Acute hypoxic respiratory failure -From aspiration into airway, aspiration pneumonia Plan -Oral gastric tube in place -Intubated -Sedated, propofol, fentanyl for sedation -Vancomycin, Zosyn -Minimize tidal volume, minimize FiO2 -Monitor respiratory status closely -Oral gastric tube in place -Aggressive pulmonary toilet Septic shock -From aspiration into airway -Intestinal ischemia -Maintain MAP greater than 65 -Currently on Levophed -Follow blood cultures -Currently on Vanco and Zosyn -Bicarb drip Portal vein thrombosis -With evidence of thrombosis of thrombosis entire portal system including superior mesenteric and splenic vein 4. No flow was detected in the main portal vein. This coupled with the findings on the CT implies that the entire portal system including superior mesenteric and splenic vein may be thrombosed or that there may be very slow flow in the superior mesenteric and splenic vein due to thrombosis of the main portal vein. This could be followed up with a CT venogram. 5. Ascites -With evidence of intestinal ischemia, abdominal distention, lack of bowel sounds lactic acidosis Plan: -General Surgery consulted -Heparin drip -Awaiting a callback from [facility] in [facility] for consideration of catheter directed thrombolysis -Bicarb drip -Monitor hemoglobin every 6 hours -Monitor lactic acid every 6 hours -Broad-spectrum antibiotic therapy as above Acute intestinal ischemia -Secondary to portal vein thrombosis as above -Broad-spectrum antibiotic therapy -Heparin drip -General Surgery consulted Concerns for possible upper GI bleed with coffee-ground emesis? -Protonix, Carafate -No episodes of coffee-ground emesis observed here -But does have feculent/dark red output from orogastric tube -Risks and benefits of anticoagulation discussed with patient's sister, for acute portal vein thrombosis, she voiced understanding, all consents are, agreed to proceed -Monitor hemoglobin every 6 hours Concerns for pulmonary embolism, with history of pulmonary embolism -CT angiogram the chest 2. Linear filling defects seen in a left upper lobe branch vessel is suspicious for possible subacute pulmonary embolus here however this may all be artifact . There is also another suspicious area for possible branch vessel pulmonary embolus in the right lower lobe inferiorly which could be acute or subacute branch vessel pulmonary embolus but again this appearance may be due to artifact. Recommend repeating this study when patient able. There is no central pulmonary embolus detected. -Venous ultrasound negative for DVT -It is not exactly clear if this is playing a role into his respiratory failure -Has a history of pulmonary embolism, was on anticoagulant therapy, was taken off Plan -Currently on heparin drip -But might need to be held based upon his clinical progress, hemoglobin trend, possible future episodes of coffee-ground emesis Acute renal failure, creatinine 3.2 urine output lackluster might require dialysis based on clinical progress Transaminitis Lactic acidosis Type 2 diabetes mellitus, lung sliding scale Full code Heparin drip for DVT prophylaxis Patient was reexamined throughout the morning into the afternoon -Was reexamined in the afternoon, on 80% FiO2, 12 Levophed, normal sinus rhythm, respiratory rate 15, afebrile -Mottling of lower extremities is improving, abdomen remains distended -Spoke to [facility], spoke to the IR team, about case, consideration of catheter directed thrombolysis, recommended continue antibiotics, IV heparin, they would discuss the case and get back to us. IR team at [facility] has accepted patient, for consideration of catheter directed thrombolysis. Spoke to moisture meter operator at [facility], spoke to him about the case in detail, events have unfolded while here in the hospital, patient's portal vein thrombosis, with evidence of intestinal ischemia, with aspiration, aspiration event resulting cardiac arrest, currently in shock, septic shock, acute renal failure, acute respiratory failure, on 12 Levophed 80% FiO2 currently looking stable, status remains critical, prognosis is poor, however patient's family wants everything to be done, after speaking with moisture meter operator, patient has been accepted -However patient's currently on 80% FiO2 12 of Levophed, status is critical, transportation will be an issue, as due to weather conditions I am not exactly sure if life flight will take him, and 3 hours ambulance ride to [facility] is significant. Nonetheless he has risk of significant morbidity mortality during transport -I spoke to patient's Sister Joslyn Black, discussed the events since the last I spoke with her, Jb's current clinical status, discussed his acceptance at [facility], -Discussed risk and benefits of transfer, Joslyn voiced understanding, all questions are, she wants to go ahead and proceed to transfer to [facility] for co nsideration of catheter directed thrombolysis for portal vein thrombosis, she is aware that his condition carry significant morbidity and mortality, but she wants everything to be done for Jb, she does not want him to -Discussed morbidity and mortality and transport, certainly his condition is better, but he has significant risk of in transport, I am going to do my best to stabilize him further, but that risk still exists, and it is a significant risk. After discussing the risk benefits, she voiced understanding, all questions answered, agreed to proceed -Will do my best to see if life alert can fly before whether returns back, other option would be fixed wing versus ground transportation -Air-Evac out of [facility] has accepted patient for transport, will be transported shortly at about 4 PM Physical Exam Const: COMMON NORMALS: no acute distress OTHER: Intubated, sedated, mechanical ventilation Resp: COMMON NORMALS: normal respiratory effort, No retractions and No use of accessory muscles AUSCULTATION: crackles and wheezes Cardio: COMMON NORMALS: regular rate, regular rhythm, S1 normal heart sound present and S2 normal heart sound present RATE: regular rate RHYTHM: regular rhythm HEART SOUNDS: S1 normal heart sound present and S2 normal heart sound present GI: OTHER: Abdomen soft, distended, no guarding, no rebound, rigidity, no bowel sounds heard Extremity: COMMON NORMALS: no pedal edema Sepsis: Is patient septic: Yes Focused sepsis exam performed: Yes Focused sepsis exam: DP PT diminished bilaterally, cap refill greater than 2 seconds, no mottling Date exam was performed: 05/29/24 Time exam was performed: 14:00 TS Data Studies Completed and Pending Pending at discharge Category Date Time Status XR chest 1V portable [id number] Routine Exams 05/30/24 07:00 Ordered Arterial Blood Gas W/O Coox AM LABS Lab 05/30/24 04:00 Ordered Arterial Blood Gas W/O Coox AM LABS Lab 05/31/24 04:00 Ordered Arterial Blood Gas W/O Coox AM LABS Lab 06/01/24 04:00 Ordered Blood Culture Stat Lab 05/29/24 08:30 Results C Reactive Protein AM LABS Lab 05/30/24 04:00 Ordered C Reactive Protein AM LABS Lab 05/31/24 04:00 Ordered C Reactive Protein AM LABS Lab 06/01/24 04:00 Ordered Complete Blood Count w/Auto AM LABS Lab 05/30/24 04:00 Ordered Complete Blood Count w/Auto AM LABS Lab 05/31/24 04:00 Ordered Complete Blood Count w/Auto AM LABS Lab 06/01/24 04:00 Ordered Comprehensive Metabolic Panel AM LABS Lab 05/30/24 04:00 Ordered Comprehensive Metabolic Panel AM LABS Lab 05/31/24 04:00 Ordered Comprehensive Metabolic Panel AM LABS Lab 06/01/24 04:00 Ordered Creatine Phosphokinase AM LABS Lab 05/30/24 04:00 Ordered Creatine Phosphokinase AM LABS Lab 05/31/24 04:00 Ordered Creatine Phosphokinase AM LABS Lab 06/01/24 04:00 Ordered Hemoglobin and Hematocrit Q6H Lab 05/29/24 19:00 Ordered Hemoglobin and Hematocrit Q6H Lab 05/30/24 01:00 Ordered Hemoglobin and Hematocrit Q6H Lab 05/30/24 07:00 Ordered Hemoglobin and Hematocrit Q6H Lab 05/30/24 13:00 Ordered Hemoglobin and Hematocrit Q6H Lab 05/30/24 19:00 Ordered Hemoglobin and Hematocrit Q6H Lab 05/31/24 01:00 Ordered Hemoglobin and Hematocrit Q6H Lab 05/31/24 07:00 Ordered Hemoglobin and Hematocrit Q6H Lab 05/31/24 13:00 Ordered Lactate (Lactic Acid level) Q6H Lab 05/29/24 16:00 Ordered Lactate (Lactic Acid level) Q6 Lab 05/29/24 22:00 Ordered Lactate (Lactic Acid level) Q6 Lab 05/30/24 04:00 Ordered Lactate (Lactic Acid level) Q6 Lab 05/30/24 10:00 Ordered Lactate (Lactic Acid level) Q6 Lab 05/30/24 16:00 Ordered Lactate (Lactic Acid level) Q6 Lab 05/30/24 22:00 Ordered Lactate (Lactic Acid level) Q6 Lab 05/31/24 04:00 Ordered Lactate (Lactic Acid level) Q6 Lab 05/31/24 10:00 Ordered Magnesium AM LABS Lab 05/30/24 04:00 Ordered Magnesium AM LABS Lab 05/31/24 04:00 Ordered Magnesium AM LABS Lab 06/01/24 04:00 Ordered NT Pro B Type Natriuretic Pept AM LABS Lab 05/30/24 04:00 Ordered Phosphorus AM LABS Lab 05/30/24 04:00 Ordered Phosphorus AM LABS Lab 05/31/24 04:00 Ordered Phosphorus AM LABS Lab 06/01/24 04:00 Ordered Platelet Count Q2D Lab 05/31/24 04:00 Ordered Platelet Count Q2D Lab 06/02/24 04:00 Ordered Procalcitonin AM LABS Lab 05/30/24 04:00 Ordered Procalcitonin AM LABS Lab 05/31/24 04:00 Ordered Procalcitonin AM LABS Lab 06/01/24 04:00 Ordered Prothrombin Time INR AM LABS Lab 05/30/24 04:00 Ordered Prothrombin Time INR AM LABS Lab 05/30/24 04:00 Ordered Prothrombin Time INR AM LABS Lab 05/31/24 04:00 Ordered Prothrombin Time INR AM LABS Lab 05/31/24 04:00 Ordered Prothrombin Time INR AM LABS Lab 06/01/24 04:00 Ordered Prothrombin Time INR AM LABS Lab 06/01/24 04:00 Ordered Urine Culture Stat Lab 05/29/24 11:30 Received CV. echo complete* [id number] Stat Ultrasound 05/29/24 09:57 Taken Completed Studies During Hospitalization Category Date Time Status CT abdomen pelvis w con* [id number] Stat Cat Scan 05/29/24 07:27 Completed CTA chest [CT angio chest PE protcl 16434] Stat Cat Scan 05/29/24 07:51 Completed CXRP [XR chest 1V portable [id number]] Stat Exams 05/29/24 07:31 Completed CXRP [XR chest 1V portable [id number]] Stat Exams 05/29/24 09:16 [place] [id number] Stat Ultrasound 05/29/24 09:57 Completed US gall bladder [id number] Stat Ultrasound 05/29/24 10:02 Completed Laboratory Last Values WBC 32.36 10^3/uL (3.29-11.43) H* 05/29/24 09:54 RBC 5.60 10^6/uL (3.85-5.65) 05/29/24 09:54 Hgb 14.20 g/dL (11.27-16.99) 05/29/24 13:10 Hct 46.3 % (37-53) 05/29/24 13:10 MCV 80.2 fl (82-101) L 05/29/24 09:54 MCH 24.3 pg (27-33) L 05/29/24 09:54 MCHC 30.3 g/dL (30-55) 05/29/24 09:54 RDW 21.6 % (12.1-15.1) H 05/29/24 09:54 Plt Count 217 10^3/cmm (157-399) 05/29/24 13:10 MPV 10.5 fL (7.4-10.4) H 05/29/24 09:54 Neut % (Auto) 90.8 % 05/29/24 09:54 Lymph % (Auto) 2.7 % 05/29/24 09:54 Sargent % (Auto) 3.7 % 05/29/24 09:54 Eos % (Auto) 0.0 % 05/29/24 09:54 Baso % (Auto) 0.2 % 05/29/24 09:54 Neut # (Auto) 29.39 10^3/uL (1.8-7.7) H 05/29/24 09:54 Lymph # (Auto) 0.9 10^3/uL (0.8-4.8) 05/29/24 09:54 Sargent # (Auto) 1.2 10^3/uL (0.2-0.9) H 05/29/24 09:54 Eos # (Auto) 0.0 10^3/uL (0.0-0.8) 05/29/24 09:54 Baso # (Auto) 0.1 10^3/uL (0.0-0.1) 05/29/24 09:54 Nucleated RBC % (auto) 0.8 % 05/29/24 09:54 Nucleated RBCs # 0.3 /100WBC 05/29/24 09:54 PT 19.80 SECONDS (12.1-14.9) H 05/29/24 09:54 INR 1.57 (0.8-1.2) H 05/29/24 09:54 APTT 28.7 SECONDS (23.9-36.7) 05/29/24 09:54 Specimen Type Arterial 05/29/24 10:21 Sample Site Radial, right 05/29/24 10:21 ABG pH 7.30 (7.35-7.45) L 05/29/24 10:21 ABG pCO2 41.3 mmHg (35-45) 05/29/24 10:21 ABG pO2 87.8 mmHg (80.0-100.0) 05/29/24 10:21 ABG PO2/FiO2 Ratio 175 05/29/24 10:21 ABG HCO3 20.3 mmol/L (22-26) L 05/29/24 10:21 ABG O2 Saturation 94.8 05/29/24 10:21 ABG Base Excess -5.8 mmol/L (-2.0-2.0) L 05/29/24 10:21 Oneil Test Pos 05/29/24 10:21 A-a O2 Gradient 27.2 mmHg (5-10) H 05/29/24 10:21 Hematocrit 41.3 % (42-52) L 05/29/24 10:21 Hgb O2 Saturation 92.3 % (95-100) L 05/29/24 10:21 Carboxyhemoglobin 1.8 %THgb (0.4-20.1) 05/29/24 10:21 Methemoglobin 0.8 % (0.4-1.5) 05/29/24 10:21 Total Hemoglobin 13.5 g/dL (14-18) L 05/29/24 10:21 Sodium 137.0 mmol/L (131-143) 05/29/24 10:21 Potassium 4.1 mmol/L (3.5-5.0) 05/29/24 10:21 Glucose 150.0 mg/dL (70-115) H 05/29/24 10:21 Ionized Calcium 1.1 mmol/L (1.1-1.4) 05/29/24 10:21 O2 Delivery Device Vent 05/29/24 10:21 FiO2 50.0 % 05/29/24 10:21 Tidal Volume 0.48 05/29/24 10:21 PEEP 5.0 cmH20 05/29/24 10:21 Mobile Device Developer ID [employer] 05/29/24 10:21 Sodium 136 mmol/L (136-145) 05/29/24 14:20 Potassium 4.8 mmol/L (3.5-5.1) 05/29/24 14:20 Chloride 96 mmol/L (98-107) L 05/29/24 14:20 Carbon Dioxide 24 mmol/L (22-29) 05/29/24 14:20 Anion Gap 20.8 (5-19) H 05/29/24 14:20 BUN 41 mg/dL (6-20) H 05/29/24 14:20 Creatinine 2.2 mg/dL (0.7-1.2) H 05/29/24 14:20 GFR Calculation 40.5 mL/min (90-130) L 05/29/24 14:20 Glucose 134 mg/dL (65-115) H 05/29/24 14:20 POC Glucose 171 mg/dL (70-110) H 05/29/24 11:46 Estimat Average Glucose 163 05/29/24 07:36 Hemoglobin A1c 7.3 % (4.0-6.0) H 05/29/24 07:36 Calculated Osmolality 294 mOsm/kg (285-295) 05/29/24 14:20 Lactic Acid 5.3 mmol/L (0.5-2.2) H* 05/29/24 07:36 Lactic Acid (Sepsis) 9.8 mmol/L (0.5-2.2) H* 05/29/24 10:20 Calcium 8.0 mg/dL (8.5-10.5) L 05/29/24 14:20 Total Bilirubin 4.1 mg/dL (0.15-1.2) H 05/29/24 07:36 Total Bilirubin 4.3 mg/dL (0.15-1.2) H 05/29/24 07:36 Direct Bilirubin 3.30 mg/dL (0.00-0.30) H 05/29/24 07:36 Indirect Bilirubin 1.00 05/29/24 07:36 AST 273 U/L (0-40) H 05/29/24 07:36 ALT 146 U/L (0-41) H 05/29/24 07:36 Alkaline Phosphatase 222 U/L (40-130) H 05/29/24 07:36 Troponin T Baseline 33 ng/L (0-15) H 05/29/24 08:29 Troponin T 120 Minute 34.71 ng/L (0-15) H 05/29/24 10:20 Delta Troponin T 1.71 ABS# (0-10) 05/29/24 10:20 Troponin T Hi Sens 6Hr 112.2 ng/L (0-15) H 05/29/24 14:20 Troponin T Hi Sens 6Hr Delta 79.2 ng/L (0-12) H* 05/29/24 14:20 NT-Pro-B Natriuret Pep 704 pg/mL (0-125) H 05/29/24 07:36 Total Protein 7.8 g/dL (6.6-8.7) 05/29/24 07:36 Albumin 2.7 g/dL (3.5-5.2) L 05/29/24 07:36 Globulin 5.1 g/dL (1.3-4.6) H 05/29/24 07:36 Lipase 10 U/L (13-60) L 05/29/24 07:36 Procalcitonin 3.47 ng/mL (0-0.5) H 05/29/24 08:29 TSH 0.32 uIU/mL (0.27-4.20) 05/29/24 08:29 Urine Color Dark yellow (Yellow) A 05/29/24 11:30 Urine Appearance Cloudy (CLEAR) A 05/29/24 11:30 Urine pH 5.5 (5-7) 05/29/24 11:30 Ur Specific Jenkins 1.064 (1.005-1.030) H 05/29/24 11:30 Urine Protein 2+ (Negative) A 05/29/24 11:30 Urine Glucose (UA) Negative (Normal) 05/29/24 11:30 Urine Ketones Negative (Negative) 05/29/24 11:30 Urine Blood 1+ (Negative) A 05/29/24 11:30 Urine Nitrate Negative (Negative) 05/29/24 11:30 Urine Bilirubin 1+ (Negative) H 05/29/24 11:30 Urine Urobilinogen 2.0 mg/dL (Negative) H 05/29/24 11:30 Ur Leukocyte Esterase Trace (Negative) A 05/29/24 11:30 Urine RBC 0-2 /hpf (0-2) 05/29/24 11:30 Urine WBC 21-50 /hpf (0-5) H 05/29/24 11:30 Ur Squamous Epith Cells 6-10 /hpf (0-5) 05/29/24 11:30 Calcium Oxalate Crystal 5-10 /hpf H 05/29/24 11:30 Amorphous Sediment Not Reportable 05/29/24 11:30 Urine Bacteria 1+ /hpf (NONE) H 05/29/24 11:30 Hyaline Casts 46.34 /lpf 05/29/24 11:30 Coarse Granular Casts 0-4 /lpf H 05/29/24 11:30 Influenza A (PCR) Negative (Negative) 05/29/24 11:30 Influenza Type B (PCR) Negative (Negative) 05/29/24 11:30 RSV (PCR) Negative (Negative) 05/29/24 11:30 SARS-CoV-2 (PCR) Negative (Negative) 05/29/24 11:30 Radiology Impressions Abdomen/Pelvis CT 05/29/24 07:27 IMPRESSION: 1. Atelectasis and infiltrate both lower lobes. Negative for pleural effusions 2. Moderate amount of ascites in the abdomen and pelvis. No organized fluid collection. 3. Bowel-gas pattern is not obstructed. Dilated loops of small and large bowel as well as the stomach suggest an adynamic ileus 4. Entire small bowel is abnormal with diffuse wall thickening and edema suggesting severe enteritis 5. Portal system is not opacified. This is favored to most likely reflect phase of contrast rather than thrombosis. Further evaluation of the portal system could be obtained with a ultrasound 6. Nonobstructing calculi both kidneys. There is mild fullness of the left intrarenal collecting system. There is enhancement of the left renal urothelium which may indicate infection here. Neoplasm here can not completely be excluded There is also mild dilatation of the distal left ureter. Probable small left renal cysts 7. High density within the bladder which may represent blood products or debris or very concentrated urine. It is possible that what is seen is very thickened bladder wall with a decompressed bladder. 8. Mesenteric adenopathy 9. Deformities both hips as described 10. Small umbilical hernia as described. COMMENTS: Consistent with the [employer]'s Incidental Findings Committee white paper (J Am Kerri Radiol 2018): Any incidental renal lesion less than 1 cm or classified as too small to characterize, or any incidental cystic renal lesion characterized as simple-appearing, is likely benign. No follow-up imaging is recommended for these lesions per consensus recommendations based on imaging criteria. Chest CTA 05/29/24 07:51 IMPRESSION: 1. This study is significantly degraded by motion and streak artifact. This limits ability to evaluate for pulmonary embolus' 2. Linear filling defects seen in a left upper lobe branch vessel is suspicious for possible subacute pulmonary embolus here however this may all be artifact . There is also another suspicious area for possible branch vessel pulmonary embolus in the right lower lobe inferiorly which could be acute or subacute branch vessel pulmonary embolus but again this appearance may be due to artifact. Recommend repeating this study when patient able. There is no central pulmonary embolus detected. 3. Bibasilar atelectasis/infiltrate. 4. Fluid in the esophagus which may indicate gastroesophageal reflux Preliminary report was discussed with Dr. Young on 05/29/2024 at 9:05 a.m. central time. Chest X-Ray 05/29/24 09:16 IMPRESSION: 1. Lines and tubes as described 2. Bibasilar lung infiltrates/atelectasis with a new infiltrate left upper lung zone. 3. Negative for pneumothorax. Negative for pleural effusion Venous Duplex 05/29/24 09:57 IMPRESSION: No evidence of deep vein thrombosis in either lower extremity.. Gallbladder Ultrasound 05/29/24 10:02 IMPRESSION: 1. No focal lesions detected in the liver. The liver portal triads are prominent however which can be seen in the setting of liver disease 2. Gallbladder is contracted. Gallbladder wall appears thickened which may be due in part or in total to the contracted state of the gallbladder. There does appear to be sludge in the gallbladder and there could be small stones here. There is no biliary ductal dilatation 3. Incomplete visualization of the pancreas 4. No flow was detected in the main portal vein. This coupled with the findings on the CT implies that the entire portal system including superior mesenteric and splenic vein may be thrombosed or that there may be very slow flow in the superior mesenteric and splenic vein due to thrombosis of the main portal vein. This could be followed up with a CT venogram. 5. Ascites 1. ADDENDUM: 05/29/24 1239 Preliminary report was given to Dr. Valenzuela on 05/29/2024 at 12:37 p.m. Recent Clincial Data Last Vital Signs Temp 97 F L 05/29/24 12:00 Pulse 102 H 05/29/24 14:00 Resp 17 05/29/24 13:37 BP 96/70 05/29/24 13:00 Pulse Ox 93 05/29/24 13:37 O2 Del Method Mechanical Ventilation 05/29/24 11:00 FiO2 80 05/29/24 13:37 Vital Signs Temp Pulse Resp BP Pulse Ox O2 Del Method FiO2 05/29/24 14:00 102 H 05/29/24 13:37 17 93 80 05/29/24 13:00 97 96/70 94 05/29/24 12:30 96 100/73 91 05/29/24 12:00 97 F L 97 93/67 95 05/29/24 12:00 99 94/66 05/29/24 11:30 99 94/66 93 05/29/24 11:29 99 18 101/57 100 05/29/24 11:15 100 92/65 91 05/29/24 11:00 104 H 16 102/80 91 05/29/24 11:00 Mechanical Ventilation 05/29/24 10:53 16 92 50 05/29/24 10:46 110 H 13 05/29/24 10:04 103 H 88/47 100 05/29/24 09:51 103 H 16 94 Mechanical Ventilation 50 05/29/24 09:50 103 H 18 96/52 100 Mechanical Ventilation 05/29/24 09:45 16 50 05/29/24 09:40 106 H 119/41 100 05/29/24 09:30 107 H 124/66 100 Mechanical Ventilation 05/29/24 09:20 93 18 137/84 100 Mechanical Ventilation 05/29/24 09:00 130 H 33 H 104/62 Room Air 05/29/24 08:50 101 H 18 142/56 100 05/29/24 08:50 121 H 93/59 100 Room Air 05/29/24 08:40 119 H 102/62 05/29/24 08:32 122 H 113/64 100 05/29/24 08:30 130 H 79/40 05/29/24 08:25 130 H 108/80 90 05/29/24 08:11 123 H 30 H 103/46 100 05/29/24 07:24 97.3 F L 114 H 20 H 117/73 90 Intake & Output/Weight 05/27/24 05/28/24 05/29/24 05/30/24 06:59 06:59 06:59 06:59 Intake Total 4545.152 / 4545.152 Balance 4545.152 / 4545.152 Weight 97.522 kg Vitals Last Vital Signs Temp 97 F L 05/29/24 12:00 Pulse 102 H 05/29/24 14:00 Resp 17 05/29/24 13:37 BP 96/70 05/29/24 13:00 Pulse Ox 93 05/29/24 13:37 O2 Del Method Mechanical Ventilation 05/29/24 11:00 FiO2 80 05/29/24 13:37 TS Medications Medications Acetaminophen (Acetaminophen 325 Mg Tablet) 650 mg PO Q6H PRN PRN Reason: Mild/Mod Pain Or Temp >/= 101 Glucagon (Glucagon 1 Mg/Ml Kit 1 Ml) 1 mg IM ONCE PRN; Protocol PRN Reason: Adult Acute Hypoglycemia Nursing Prot. Heparin Sodium (Porcine) (Heparin 5,000 Unit/Ml Inj 1 Ml) 0 unit IVP PRN PRN; Protocol PRN Reason: Heparin Weight Based Protocol -Subsequent Bolus Propofol (Diprivan) 1,000 mg in 100 mls @ 0 mls/hr IV .Q0M GUS; Protocol Last Titration: 05/29/24 10:11 Dose: 15 mcg/kg/min, 8.78 mls/hr Norepinephrine Bitartrate (Levophed) 4 mg in 250 mls @ 0 mls/hr IV .Q0M GUS; Protocol Last Titration: 05/29/24 10:11 Dose: 12 mcg/min, 45 mls/hr Fentanyl (Sublimaze) 1,000 mcg in 100 mls @ 0 mls/hr IV .Q0M GUS; Protocol Dextrose (D5w) 500 mls @ 0 mls/hr IV ONCE PRN; Protocol PRN Reason: Adult Acute Hypoglycemia Prot Dextrose (D10w) 125 mls @ 750 mls/hr IV PRN PRN; Protocol PRN Reason: Adult Acute Hypoglycemia Nursing Protocol Dextrose (D10w) 250 mls @ 1,000 mls/hr IV PRN PRN; Protocol PRN Reason: Adult Acute Hypoglycemia Nursing Protocol Piperacillin Sod/Tazobactam (Sod 3.375 gm/ Sodium Chloride) 50 mls @ 12.5 mls/hr IV Q8H GUS Vancomycin HCl (Vancocin) 1,500 mg in 300 mls @ 200 mls/hr IV Q24H GUS Albumin Human (Albumin) 25 g in 100 mls @ 60 mls/hr IV Q8H [facility] Last Infusion: 05/29/24 13:03 Dose: Infused Heparin Sodium/Sodium Chloride (Heparin Drip) 25,000 unit in 500 mls @ 0 mls/hr IV CONT GUS; Protocol Last Admin: 05/29/24 13:16 Dose: 13.84 unit/kg/hr, 27 mls/hr Sodium Bicarbonate 50 meq/ (Sodium Chloride) 1,050 mls @ 100 mls/hr IV .[id number] [facility] Last Admin: 05/29/24 15:08 Dose: 100 mls/hr Insulin Human Lispro (Insulin Lispro 100 Unit/1 Ml) 0 unit SUBCUT WM&BEDTIME [facility]; Protocol Last Admin: 05/29/24 11:52 Dose: 2 unit Ondansetron HCl (Ondansetron 2 Mg/Ml Sdv 2 Ml) 4 mg IVP Q8H PRN PRN Reason: vomiting, or N/V if npo Pantoprazole Sodium (Pantoprazole 40 Mg Sdv) 40 mg IVP Q12H GUS Last Admin: 05/29/24 10:10 Dose: 40 mg Sucralfate (Sucralfate 1 Gm/10 Ml Oral Liq Udc) 1 gm PO Q6H GUS Last Admin: 05/29/24 11:14 Dose: 1 gm Discontinued Medications Epinephrine HCl (Epinephrine 1 Mg/Ml Inj) Confirm Administered Dose 3 mg .ROUTE .STK-MED ONE Stop: 05/29/24 09:17 Last Admin: 05/29/24 09:52 Dose: Not Given Heparin Sodium (Porcine) (Heparin 5,000 Unit/Ml Inj 1 Ml) 0 unit IVP PRN PRN; Protocol PRN Reason: Heparin Weight Based Protocol -Subsequent Bolus Heparin Sodium (Porcine) (Heparin 5,000 Unit/Ml Inj 1 Ml) 0 unit IVP ONCE ONE; Protocol Stop: 05/29/24 09:05 Last Admin: 05/29/24 10:16 Dose: Not Given Heparin Sodium (Porcine) (Heparin 5,000 Unit/Ml Inj 1 Ml) 0 unit IVP ONCE ONE; Protocol Stop: 05/29/24 12:38 Last Admin: 05/29/24 13:16 Dose: 2,000 unit Sodium Chloride (Sodium Chloride 0.9%) 1,000 mls @ 999 mls/hr IV .Q1H1M ONE Stop: 05/29/24 08:46 Last Infusion: 05/29/24 09:55 Dose: Infused Vancomycin HCl 1,000 mg/ (Sodium Chloride) 250 mls @ 250 mls/hr IV ONCE ONE; Protocol Stop: 05/29/24 08:52 Last Infusion: 05/29/24 09:54 Dose: Infused Piperacillin Sod/Tazobactam (Sod 3.375 gm/ Sodium Chloride) 50 mls @ 100 mls/hr IV ONCE ONE; Protocol Stop: 05/29/24 08:22 Last Infusion: 05/29/24 09:55 Dose: Infused Sodium Chloride (Sodium Chloride 0.9%) 1,000 mls @ 999 mls/hr IV .Q1H1M ONE Stop: 05/29/24 09:37 Last Infusion: 05/29/24 09:54 Dose: Infused Sodium Chloride (Sodium Chloride 0.9%) 1,000 mls @ 999 mls/hr IV .Q1H1M ONE Stop: 05/29/24 09:37 Last Infusion: 05/29/24 09:54 Dose: Infused Heparin Sodium/Sodium Chloride (Heparin Drip) 25,000 unit in 500 mls @ 0 mls/hr IV CONT GUS; Protocol Last Admin: 05/29/24 10:16 Dose: Not Given Epinephrine HCl 2.5 mg/ Sodium (Chloride) 252.5 mls @ 0 mls/hr IV .Q0M GUS; Protocol Epinephrine HCl 2.5 mg/ Sodium (Chloride) 252.5 mls @ 0 mls/hr IV .Q0M GUS; Protocol Last Titration: 05/29/24 09:53 Dose: Infused Octreotide Acetate 500 mcg/ (Sodium Chloride) 101 mls @ 10.1 mls/hr IV .Q10H GUS Last Infusion: 05/29/24 13:24 Dose: 0 mcg/hr, 0 mls/hr Sodium Bicarbonate 50 meq/ (Sodium Chloride) 1,050 mls @ 100 mls/hr IV .[id number] GUS Last Admin: 05/29/24 10:15 Dose: 100 mls/hr Lactated Ringer's (Lactated Ringers) 1,000 mls @ 999 mls/hr IV .Q1H1M ONE Stop: 05/29/24 10:57 Last Infusion: 05/29/24 13:25 Dose: Infused Vancomycin HCl / Sodium (Chloride) 250 mls @ 0 mls/hr [id number] PROTOCOL GUS; Protocol Piperacillin Sod/Tazobactam (Sod / Sodium Chloride) 50 mls @ 0 mls/hr [id number] CONT GUS; Protocol Vancomycin HCl 500 mg/ Sodium (Chloride) 100 mls @ 200 mls/hr IV ONCE ONE Stop: 05/29/24 10:59 Last Infusion: 05/29/24 13:25 Dose: Infused Iohexol (Iohexol 350 Mg/Ml 500 Ml Btl (Per Ml)) 0 ml IV ONCE ONE Stop: 05/29/24 08:03 Last Admin: 05/29/24 08:02 Dose: 82 ml Lorazepam (Lorazepam 2 Mg/Ml Inj 1 Ml) 1 mg IVP ONCE ONE Stop: 05/29/24 08:40 Last Admin: 05/29/24 08:00 Dose: 1 mg Morphine Sulfate (Morphine 4 Mg/Ml Sdv 1 Ml) 4 mg IVP ONCE ONE Stop: 05/29/24 07:28 Last Admin: 05/29/24 07:43 Dose: 4 mg Ondansetron HCl (Ondansetron 2 Mg/Ml Sdv 2 Ml) 4 mg IVP ONCE ONE Stop: 05/29/24 07:28 Last Admin: 05/29/24 07:43 Dose: 4 mg Allergies No Known Allergies Allergy (Verified 11/02/23 16:30) Home Medications acetaminophen 325 mg tablet (Tylenol) 650 mg PO Q6H PRN Fever Or Pain 11/02/23 [History Confirmed 05/29/24] bisacodyl 10 mg rectal suppository 10 mg OR DAILY PRN Constipation 11/02/23 [History Confirmed 05/29/24] cetirizine 10 mg tablet (Zyrtec) 10 mg PO DAILY PRN Allergy Symptoms 11/02/23 [History Confirmed 05/29/24] magnesium hydroxide 400 mg/5 mL oral suspension (Milk of Magnesia) 400 mg PO DAILY PRN Constipation 11/02/23 [History Confirmed 05/29/24] polyethylene glycol 3350 17 gram oral powder packet (Miralax) 17 g PO DAILY PRN Constipation 11/02/23 [History Confirmed 05/29/24] sennosides 8.6 mg tablet (senna) 8.6 mg PO DAILY PRN Constipation 11/02/23 [History Confirmed 05/29/24] sodium phosphates 19 gram-7 gram/118 mL enema (Fleet Enema) 118 ml OR DAILY PRN Constipation 11/02/23 [History Confirmed 05/29/24] glucometer testing kit #1 ea 11/05/23 [Rx Confirmed 05/29/24] bismuth subsalicylate 262 mg/15 mL oral suspension (Pepto-Bismol) 524 mg PO QID 05/29/24 [History Confirmed 05/29/24] [id number] 2 mg-7.8 mg-325 mg efferves. tablet (Mckayla- Fouke Plus Cold (PE)) 2 ea PO Q12H PRN Allergy Symptoms 05/29/24 [History Confirmed 05/29/24] ondansetron HCl 4 mg tablet 4 mg PO Q6H PRN Nausea And Vomiting 05/29/24 [History Confirmed 05/29/24] Discharge Plan Discharge Patient Disposition: Home Condition: Stable Prescriptions: No Action acetaminophen [Tylenol] 325 mg Tablet 650 mg PO Q6H PRN (Reason: Fever Or Pain) sennosides [senna] 8.6 mg Tablet 8.6 mg PO DAILY PRN (Reason: Constipation) polyethylene glycol 3350 [Miralax] 17 gram Powder In Packet 17 g PO DAILY PRN (Reason: Constipation) cetirizine [Zyrtec] 10 mg Tablet 10 mg PO DAILY PRN (Reason: Allergy Symptoms) magnesium hydroxide [Milk of Magnesia] 400 mg/5 mL Suspension 400 mg PO DAILY PRN (Reason: Constipation) bisacodyl 10 mg Suppository 10 mg OR DAILY PRN (Reason: Constipation) Fleet Enema 19-7 gram/118 mL Enema 118 ml OR DAILY PRN (Reason: Constipation) (DME) glucometer testing kit See Rx Instructions .Route .MEDSUPPLY Qty: 1 0RF Rx Instructions: Glucometer testing kit, lancets #100, strips 100, check BS TID ondansetron HCl 4 mg tablet 4 mg PO Q6H PRN (Reason: Nausea And Vomiting) bismuth subsalicylate [Pepto-Bismol] 262 mg/15 mL Suspension 524 mg PO QID Mckayla-Fouke Plus Cold (PE) 2-7.8-325 mg Tablet, Effervescent 2 ea PO Q12H PRN (Reason: Allergy Symptoms) Patient Instructions: Opioid Safety Transfer Attestations Time Spent in Transfer Care: greater than 30 min Quality Metrics Clinical Quality Measures [ No reported AMI, CVA or VTE this stay] Coding Level [facility] Cardiac arrest I46.9 Pulmonary embolism I26.09 Acute cor pulmonale presence: with acute cor pulmonale Chronicity: unspecified Pulmonary embolism type: unspecified Down syndrome Q90.9 Portal vein thrombosis I81 Acute intestinal ischemia K55.059 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
[2024-05-29] MEDS: norepinephrine 4 MG/250 ML BAG 45 MG IV (15:32)
--- NOTE | 2024-05-29 16:00 | PC.NURSE ---
air vac here report given to crew transfering to [facility]
== END 2024-05-29 16:50 | disposition short-term general hospital (02) | DRG 871 ==
LOC: ER 10:26 → ICU 10:37
PROVIDERS: Admitting Provider Family Medicine; Emergency Provider Emergency Medicine; Visit Provider Family Medicine
DX: A41.9 Sepsis, unspecified organism (principal); I26.09 Other pulmonary embolism with acute cor pulmonale; I46.9 Cardiac arrest, cause unspecified; R65.21 Severe sepsis with septic shock; I81 Portal vein thrombosis; K55.059 Acute (reversible) ischemia of intestine, part and extent unspecified; J96.01 Acute respiratory failure with hypoxia; J69.0 Pneumonitis due to inhalation of food and vomit; E87.20 Acidosis, unspecified; N17.9 Acute kidney failure, unspecified; K56.0 Paralytic ileus; R18.8 Other ascites; N39.0 Urinary tract infection, site not specified; Q90.9 Down syndrome, unspecified; D73.5 Infarction of spleen; R74.01 Elevation of levels of liver transaminase levels; Z86.711 Personal history of pulmonary embolism; K52.9 Noninfective gastroenteritis and colitis, unspecified; K59.00 Constipation, unspecified
CPT/HCPCS: 36415; 36416; 36600; 51702; 71045; 71275; 74177; 76705; 80048; 80051; 80053; 81001; 82247; 82248; 82330; 82805; 82962; 83036; 83605; 83690; 83880; 84145; 84443; 84484; 85014; 85018; 85025; 85049; 85610; 85730; 87040; 87077; 87086; 87186; 87637; 93005; 93306; 93970; 94002; 94799; 96365; 96366; 96367; 96372; 99291; 99292; J0171; J1644; J1815; J2060; J2270; J2354; J2405; J2470; J2543; J2704; J3370; J7030; J7050; J7120; J9999; P9046